=== PATIENT | male | born 1940 | race Caucasian/White ===

== ENCOUNTER → 2016-08-31 | Day surgery (SDC) | payer MEDICARE ==
[~2016-08-31] MED LIST: Acetaminophen TAB* 325 MG PO PRN; Buffered Lidocaine 1% SYR 3ML* 3 ML/SYR SYRINGE INTRADERM ONE; Buffered Lidocaine 1% SYR 3ML* 3 ML/SYR SYRINGE ONE; Cyclopentolate 1% OPTH.SOL* 2 ML BTL ONE; Flurbiprofen 0.03% OPTH.SOL* 2.5 ML BTL ONE; Lidocaine 1% MPF* 2 ML VIAL ONE; Lidocaine 2% EPI 1:200000 MPF* 20 ML VIAL ONE; Midazolam* 1 MG/ML 2 ML VIAL (2 MG) ONE; Neomycin/Polymy/Dex OPTH.SUSP* MAXITROL 0.1% 5 ML ONE; Phenylephrine 2.5% OPTH.SOL* 2 ML BTL ONE; Povidone Iodine 5% OPTH* 30 ML BTL ONE; Proparacaine 0.5% OPHTH.SOL* 15 ML BTL ONE; acetaZOLAMIDE TAB* 250 MG ONE
[2016-08-31 14:54] VITALS: BP 138/67
--- NOTE | 2016-08-31 21:54 | OP ---
DATE OF OPERATION: 08/31/16 [facility] DATE OF : 44 SURGEON: Cirilo Gaston M.D. PREOPERATIVE DIAGNOSIS: Cataract, right eye. POSTOPERATIVE DIAGNOSIS: Cataract, right eye. OPERATIVE PROCEDURE: Phacoemulsification, right eye with IOL. DESCRIPTION OF PROCEDURE: The patient was brought to the operating room after being given 1/2% Alcaine with epinephrine drops in the preoperative area. The eye was prepped and draped in the usual sterile fashion. Sterile drape and eyelid speculum were placed. Again, topical 1/2% Alcaine with epinephrine was given. A paracentesis incision was made at the 9 o'clock position with the No.75 blade. Clear cornea incision 2.2 x 2.2-mm was created at the 12 o'clock position starting at the anterior limbus using the 2.2-mm keratome. The anterior chamber was irrigated with 0.4 mL of 1% non-preservative intracameral lidocaine and filled with DisCoVisc. A capsulorrhexis was completed using the cystotome and the Utrata forceps. Hydrodissection was performed with balanced salt solution. The lens nucleus was removed with the Phacoemulsification handpiece without incident. Cortex was removed with the irrigation-aspiration handpiece. The capsular bag was re-inflated using DisCoVisc and an [id number] 15.5 implant was inserted with the shooter. The irrigation-aspiration handpiece was used to remove all residual DisCoVisc. The eye was refilled with balanced salt solution and the wound checked and found to be watertight. Topical Maxitrol drops were given. [id number]/[facility] #: [id number] [facility]
== END | disposition home or self-care (01) ==
LOC: OREAST 10:05
PROVIDERS: ATTEND Specialist
DX: H25.813 Combined forms of age-related cataract, bilateral (principal); H43.813 Vitreous degeneration, bilateral; I25.10 Atherosclerotic heart disease of native coronary artery without angina pectoris; I10 Essential (primary) hypertension; I71.4 Abdominal aortic aneurysm, without rupture; Z95.1 Presence of aortocoronary bypass graft; K21.9 Gastro-esophageal reflux disease without esophagitis; F32.9 Major depressive disorder, single episode, unspecified; E78.00 Pure hypercholesterolemia, unspecified
CPT/HCPCS: A9270-GY; J2250; V2632

== ENCOUNTER → 2016-09-07 | Day surgery (SDC) | payer MEDICARE ==
[2016-09-07 11:57] VITALS: BP 122/56
--- NOTE | 2016-09-07 13:22 | OP ---
DATE OF OPERATION: 09/07/16 - [facility] DATE OF : 44 SURGEON: Cirilo Gaston M.D. PREOPERATIVE DIAGNOSIS: Cataract, left eye. POSTOPERATIVE DIAGNOSIS: Cataract, left eye. OPERATIVE PROCEDURE: Phacoemulsification, left eye, with IOL. DESCRIPTION OF PROCEDURE: The patient was brought to the operating room after being given 1/2% Alcaine with epinephrine drops in the preoperative area. The eye was prepped and draped in the usual sterile fashion. Sterile drape and eyelid speculum were placed. Again, topical 1/2% Alcaine with epinephrine was given. A paracentesis incision was made at the 3 o'clock position with the No.75 blade. Clear cornea incision 2.2 x 2.2-mm was created at the 6 o'clock position starting at the anterior limbus using the 2.2-mm keratome. The anterior chamber was irrigated with 0.4 mL of 1% non-preservative intracameral lidocaine and filled with DisCoVisc. A capsulorrhexis was completed using the cystotome and the Utrata forceps. Hydrodissection was performed with balanced salt solution. The lens nucleus was removed with the Phacoemulsification handpiece without incident. Cortex was removed with the irrigation-aspiration handpiece. The capsular bag was re-inflated using DisCoVisc and an [id number] 15 implant was inserted with the shooter. The irrigation-aspiration handpiece was used to remove all residual DisCoVisc. The eye was refilled with balanced salt solution and the wound checked and found to be watertight. Topical Maxitrol drops were given. [id number]/[facility] #: [id number] MTDD
== END | disposition home or self-care (01) ==
LOC: OREAST 08:15
PROVIDERS: ATTEND Specialist
DX: H25.812 Combined forms of age-related cataract, left eye (principal); H43.813 Vitreous degeneration, bilateral; I10 Essential (primary) hypertension
CPT/HCPCS: A9270-GY; J2250; V2632

== ENCOUNTER → 2019-04-10 | Day surgery (SDC) | payer MEDICARE ==
[~2019-04-10] MED LIST changes: -Acetaminophen TAB* 325 MG PO PRN; -Buffered Lidocaine 1% SYR 3ML* 3 ML/SYR SYRINGE INTRADERM ONE; -Buffered Lidocaine 1% SYR 3ML* 3 ML/SYR SYRINGE ONE; +Buffered Lidocaine 1% SYRIN* 1 ML/SYRINGE INTRADERM ONE; +Chlorhexidine MW 0.12% 473ML* STOCK BOTTLE * USE UNIT DOSE ONE; -Cyclopentolate 1% OPTH.SOL* 2 ML BTL ONE; +Dexamethasone IV* 4 MG/ML 1 ML (4 MG) ONE; -Flurbiprofen 0.03% OPTH.SOL* 2.5 ML BTL ONE; +Gelfoam Sponge SIZE 100* SPONGE ONE; +Lactated Ringers 1000 ML Bag* 1,000 ML IV SCH; -Lidocaine 1% MPF* 2 ML VIAL ONE; +Lidocaine 1% w EPI 1:100,000* MDV 20 ML VIAL ONE; -Lidocaine 2% EPI 1:200000 MPF* 20 ML VIAL ONE; +Methylene Blue 0.5 %* 50 MG/10 ML AMP IV ONE; -Neomycin/Polymy/Dex OPTH.SUSP* MAXITROL 0.1% 5 ML ONE; +Ondansetron INJ* 2 MG/ML VIAL ONE; -Phenylephrine 2.5% OPTH.SOL* 2 ML BTL ONE; -Povidone Iodine 5% OPTH* 30 ML BTL ONE; -Proparacaine 0.5% OPHTH.SOL* 15 ML BTL ONE; +Propofol* 10 MG/ML 20 ML BTL ONE; +Rocuronium* 10 MG/ML VIAL ONE; +Sugammadex * 200 MG/2 ML VIAL IV PUSH ONE; -acetaZOLAMIDE TAB* 250 MG ONE; +ceFAZolin 2 GM in NS PREMIX(*) 2 GM/100 ML BAG IVPB ONE; +fentaNYL* 50 MCG/ML 2 ML VIAL (100 MCG VIAL) ONE
[2019-04-10 11:22] VITALS: BP 154/76
--- NOTE | 2019-04-10 14:10 | OP ---
DATE OF OPERATION: 04/10/19 - [facility] DATE OF : 44 SURGEON: Cirilo Le MD ANESTHESIA: General endotracheal anesthesia. 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 OPERATIVE PROCEDURE: Tooth extraction #6 which is the right upper canine and CO2 laser ablation/excision of verrucous carcinoma of the gingiva and hard palate under general endotracheal anesthesia. COMPLICATIONS: None. DISPOSITION: Good. DESCRIPTION OF PROCEDURE: The patient was taken to the operating room, placed in a supine position on the operating table. General anesthesia was induced and he was orotracheally intubated. He was draped with wet towels and wet eye pads for the CO2 laser and the surgery was performed. A bite-block was placed on the left side to open his mouth. He had a lot of diffuse leukoplakia along his alveolus and gingiva along the right upper jaw, and biopsy between his second incisor and canine, wrapping around the canine to the first premolar, was biopsy proven to be verrucous cell carcinoma. I injected this whole area with 1% lidocaine mixed with 0.5% Marcaine and epinephrine and used the CO2 laser to ablate all of this area along the both medial and lateral alveolus along the teeth to remove all of the leukoplakia where the cancer was. I extracted the tooth #6 and used the laser to cut out the area that was cancer. I elevated a flap on the lateral aspect of the maxilla with the gingivobuccal mucosa, and after putting some Gelfoam into the tooth socket, sutured the mucosa over the hole with circumdental 4-0 chromic. Chlorhexidine was used to rinse the wound. The patient tolerated the procedure well, no complications, extubated uneventfully, and transferred to the recovery room in stable condition. [id number]/[facility] #: [id number] [facility]
== END | disposition home or self-care (01) ==
LOC: OR 06:41
PROVIDERS: ATTEND Otolaryngology
DX: C03.0 Malignant neoplasm of upper gum (principal); C05.0 Malignant neoplasm of hard palate; K05.222 Aggressive periodontitis, generalized, moderate; G47.33 Obstructive sleep apnea (adult) (pediatric); I10 Essential (primary) hypertension; I25.10 Atherosclerotic heart disease of native coronary artery without angina pectoris; Z95.1 Presence of aortocoronary bypass graft; E78.00 Pure hypercholesterolemia, unspecified; N40.0 Benign prostatic hyperplasia without lower urinary tract symptoms
CPT/HCPCS: 88300; J0690; J1100; J2250; J2405; J2704; J3010

== ENCOUNTER 2019-06-06 10:50 | Inpatient (IN) | payer MEDICARE ==
--- NOTE | 2019-05-28 09:35 | HP ---
HISTORY AND PHYSICAL: DATE OF ADMISSION/SURGERY: 06/06/19 DATE OF OFFICE VISIT: 05/27/19 SURGEON: Ana Paula Ward MD.* (DICTATED BY NICOLASA RODRIGUEZ) PROCEDURE: Right total knee arthroplasty. CHIEF COMPLAINT: Right knee pain. HISTORY OF PRESENT ILLNESS: Mr. Lepe is a 78-year-old gentleman with complaints of right knee pain. He has failed conservative treatment and elected to proceed with a right total knee arthroplasty. PAST MEDICAL HISTORY: Coronary artery disease with a history of CABG, hypertension, high cholesterol, GERD, anxiety, depression, history of prostate cancer, and history of abdominal aortic aneurysm. PAST SURGICAL HISTORY: CABG, removal of periosteal chondroma, prostatectomy, stent placement in the abdominal aorta, and a cardiac stent placement. CURRENT MEDICATIONS: 1. Abilify 2 mg daily. 2. Rosuvastatin calcium 40 mg a day. 3. Nitroglycerin 0.4 mg sublingual as needed. 4. Cartia 120 mg daily. 5. Aspirin 81 mg a day. 6. Prilosec 20 mg a day. 7. Fish oil. 8. Escitalopram 20 mg a day. 9. Tamsulosin 0.4 mg daily. 10. Stool softener as needed. ALLERGIES: No known drug allergies. FAMILY HISTORY: Cancer and coronary artery disease. SOCIAL HISTORY: He is a 78-year-old gentleman, lives with his . He does not smoke or use drugs. REVIEW OF SYSTEMS: A complete 14-point review of systems was reviewed with the patient and was positive for GERD. He denies a history of DVT, PE, hepatitis, HIV, or anesthesia problems. PHYSICAL EXAMINATION GENERAL: He is well developed, well nourished, in no acute distress. VITAL SIGNS: He stands 67 inches tall, weighs 193 pounds, his blood pressure is 130/62, his heart rate is 82. HEENT: Normocephalic, atraumatic. NECK: Supple. No palpable lymph nodes. CARDIO: Regular rate and rhythm. There is a palpable murmur. ABDOMEN: Soft, nontender, nondistended. NEUROLOGIC: He is alert and oriented x3. MUSCULOSKELETAL: Right lower extremity, skin is intact. There are no open wounds or abrasions. There is a moderate effusion of the right knee joint, some tenderness over the medial and lateral joint line. He walks with an antalgic type gait. There is a 12-degree valgus deformity. Range of motion is 10 to 100 degrees of flexion with patellofemoral crepitus. He has a 2+ dorsalis pedis pulse. He is able to dorsiflex and plantarflex and has intact sensation. ASSESSMENT AND PLAN: Mr. Lepe is a 78-year-old gentleman with end-stage osteoarthritis of the right knee. He has failed conservative treatment and elected to proceed with a right total knee arthroplasty. The surgery is scheduled for 06/06/[address] Ward discussed the risks and benefits of this surgery on today's visit and all of his questions were answered. He will follow up with Dr. Ward 2 weeks after the surgery. NICOLASA RODRIGUEZ [id number]/[facility] #: [id number] MTDStephan
[~2019-06-06 10:50] MED LIST changes: -Chlorhexidine MW 0.12% 473ML* STOCK BOTTLE * USE UNIT DOSE ONE; -Dexamethasone IV* 4 MG/ML 1 ML (4 MG) ONE; -Gelfoam Sponge SIZE 100* SPONGE ONE; -Lidocaine 1% w EPI 1:100,000* MDV 20 ML VIAL ONE; -Methylene Blue 0.5 %* 50 MG/10 ML AMP IV ONE; -Midazolam* 1 MG/ML 2 ML VIAL (2 MG) ONE; -Ondansetron INJ* 2 MG/ML VIAL ONE; -Propofol* 10 MG/ML 20 ML BTL ONE; -Rocuronium* 10 MG/ML VIAL ONE; -Sugammadex * 200 MG/2 ML VIAL IV PUSH ONE; +Tranexamic Acid 1,000 MG in NS 0.9% 50 ML* (outpatient use) IV SCH; -ceFAZolin 2 GM in NS PREMIX(*) 2 GM/100 ML BAG IVPB ONE; -fentaNYL* 50 MCG/ML 2 ML VIAL (100 MCG VIAL) ONE
--- OUTSIDE RECORDS SUMMARY | 2019-06-06 10:54 | XMS REPORT | Continuity of Care Document ---
:1940 External Reference #:[id number] Author Name Cirilo Le M.D. Address [address] [place] [address] Care Team Providers Name Role Phone Chris Hatfiled DDS Care Team Information House Worker General [phone] [place] Catherine M.D. - Endocrinology, Care Team Information House Worker General [phone] Diabetes & Metabolism Khurram Haddad DR. - Care Team Information House Worker General [phone] Cardiovascular Disease Problems Active Problems Provider Date Essential hypertension Cirilo Le M.D. Onset: 01/01/2019 Malignant tumor of hard palate Cirilo Le M.D. Onset: 03/11/2019 Social History Type Date Description Comments Sex Unknown Tobacco Use Start: Unknown Never Smoked Cigarettes Tobacco Use Start: Unknown Never Smoked Cigars Tobacco Use Start: Unknown Never Smoked A Pipe Smokeless Tobacco Never Used Smokeless Tobacco ETOH Use Denies alcohol use Tobacco Use Start: Unknown Patient has never smoked Smoking Status Reviewed: 05/19/19 Patient has never smoked Allergies, Adverse Reactions, Alerts Description No Known Drug Allergies Medications Active Medications SIG Qnty Indications Ordering Date Provider Triamcinolone apply to inflamed 15gm K05.222 Cirilo Youssef 02/25/2019 Acetonide Dental gums two times a Ina Le day for 2 weeks M.DMichel 0.1% Paste Clotrimazole 1 by mouth 5 times 70units Cirilo Youssef 01/08/2019 10mg a day for 14 days Jerson Le M.D. Cartia MORAIMA Haddad, 120mg Caps BRITTNEY Paulson DR. 24HR Omeprazole Bere SABA, 20mg Walker Capsules Aripiprazole Unknown 2mg Tablets Chlorhexidine rinse and spit 10 354ml Cirilo Youssef Gluconate milliliters three Rey 0.12% times per day MChun Solution postoperative. Tamsulosin HCL Unknown 0.4mg Capsules Escitalopram Oxalate Unknown 20mg Tablets Rosuvastatin Calcium Foster N.P., Shilpa 40mg Tablets History Medications Oxycodone-Acetaminophen take 1-2 12tabs Cirilo Youssef 04/10/2019 - 5-325mg Tablets every 4-6 Luis Le 04/17/2019 hours as needed for pain. Mycelex Trouches 1 per mouth 70units Cirilo Youssef 01/08/2019 - 10mg Trouches 5 times per Luis Le 01/08/2019 day Immunizations Description No Information Available Vital Signs Date Vital Result Comment 05/20/2019 1:39pm Weight 194.12 lb Weight 88.055 kg Height 68 inches 5'8" Height in cm's 172.7 cm BMI (Body Mass Index) 29.5 kg/m2 03/11/2019 3:11pm BP Systolic 145 mmHg BP Diastolic 67 mmHg Heart Rate 75 /min Respiratory Rate 18 /min Weight 181.00 lb Weight 82.102 kg Height 68 inches 5'8" Height in cm's 172.7 cm BMI (Body Mass Index) 27.5 kg/m2 Results Test Date Facility Test Result H/L Range Note Laboratory test 04/10/2019 [facility] SEE RESULT 1 finding c/o [facility] [place], [place] [id number] [phone] Laboratory test 02/25/2019 [facility] SEE RESULT 2, 3 finding c/o [facility] [place] [address] [phone] Laboratory test 01/01/2019 [facility] SEE RESULT 4 finding c/o [facility] [place] [address] [phone] 1 SEE RESULT BELOW Name: LEVI LEPE : [address]: Cirilo Le MD Acct: [id number] Unit: [id number] AGE: 78 Location: OR Re04/10/19 SEX: M Status: REG SDC SPEC: [id number] VANNESSA: 04/10/19- [facility] DR: Cirilo Le MD REQ: [id number] RECD: 04/10/19 STATUS: SOUT _ ORDERED: LEVEL 1 FINAL DIAGNOSIS Mouth teeth, right upper canine, extraction: Carious teeth (gross diagnosis) PRE-OPERATIVE DIAGNOSIS Aggressive periodentitis, generalized, moderate GROSS DESCRIPTION The specimen is received fresh labeled, Right Upper Canine, and consists of a 2.5 by up to 0.8 x 0.8 cm pritchard-white to red irregular to tapered hard fragment with scant adherent pritchard-red soft tissue. The specimen is consistent with a tooth. Per established hospital medical staff protocol, no tissue is submitted. Gross only. Signed by and Reported on: Jeff Suarez MD 1523 END OF REPORT DEPARTMENT OF PATHOLOGY, [address] [place] [address] Jeff Suarez M.D. 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 Comment: The patient's prior biopsies S1 9???5 [id number] were reviewed. CLINICAL HISTORY Compare to previous biopsy GROSS DESCRIPTION The specimen is received in formalin labeled, Mouth, and consists of a 0.5 up to 0.4 x 0.2 cm pritchard-white irregular mucosal tissue fragment which is submitted entirely in one cassette. Signed by and Reported on: Jeff Suarez MD 1133 END OF REPORT DEPARTMENT OF PATHOLOGY, [address] [place] [address] Jeff Suarez M.D. Director [facility] # [id number] 4 SEE RESULT BELOW Name: LEVI LEPE : [address]: Cirilo Le MD Acct: [id number] Unit: [id number] AGE: 78 Location: [facility] Re01/01/19 SEX: M Status: REG REF SPEC: [id number] VANNESSA: 01/01/19-[address] [facility] [address]: Cirilo Le MD REQ: [id number] RECD: 01/01/19 STATUS: SOUT _ ORDERED: LEVEL 4/2, IMMUNO-FIRST COMMENTS: [id number] FINAL DIAGNOSIS 1. Oral mucosa, palatal surface behind right upper canine, biopsy: -- Benign squamous mucosa with chronic and focal acute inflammation and reactive epithelial change; see comment. 2. Gingival surface between first and second molar, biopsy: -- Inflamed, hyper parakeratotic squamous mucosa with pseudoepitheliomatous hyperplasia. -- No evidence of dysplasia or malignancy identified. COMMENT: A p16 immunohistochemical stain, with appropriately reacting controls, was performed on sections cut from specimen one and is negative for HPV-related cytopathic effect. Dr. Suarez reviewed this case in intradepartmental consultation and agrees with the diagnosis. CLINICAL HISTORY No history given GROSS DESCRIPTION 1. The specimen is received in formalin labeled, Palatal Surface behind Right Upper Canine, and consists of a 0.5 x 0.3 x 0.2 cm pritchard-white irregular mucosal tissue fragment which is inked, bisected and submitted entirely in one cassette. 2. The specimen is received in formalin labeled, Gingival Surface between First and Second CONTINUED ON NEXT PAGE DEPARTMENT OF PATHOLOGY, [address] [place] [address] Jeff Suarez M.D. Director [facility] # [id number] RUN DATE: 01/04/19 [facility] LAB LIVE PAGE 2 Patient: LEVI LEPE [id number] (Continued) GROSS DESCRIPTION (Continued) Molar, and consists of a 0.5 by up to 0.3 x 0.1 cm pritchard-white irregular mucosal tissue fragment which is inked, bisected and submitted entirely in one cassette. Signed by and Reported on: Bouchra Dalton MD 01/04/19 1109 END OF REPORT DEPARTMENT OF PATHOLOGY, [address] [place] [address] Jeff Suarez M.D. Director [facility] # [id number] Procedures Date Code Description Status 04/10/2019 85659 Cautery, Lesion Of Oral Cavity Completed 02/25/2019 04081 Biopsy Floor Of Mouth Completed 01/01/2019 12518 Biopsy, Palate/Uvula Completed Medical Devices Description No Information Available Encounters Type Date Location Provider Dx Diagnosis Office Visit 05/20/2019 [place] Cirilo Youssef C05.0 Malignant neoplasm 1:45p 08/14/07 Luis Le of hard palate K05.222 Aggressive periodontitis, generalized, moderate Office Visit 03/11/2019 [place] Cirilo Youssef C05.0 Malignant 3:00p 08/14/07 Luis Le neoplasm of hard palate K05.222 Aggressive periodontitis, generalized, moderate Office 02/25/2019 [place] Cirilo Youssef K05.222 Aggressive Visit 3:15p 08/14/07 Luis Le periodontitis, generalized, moderate Office 01/01/2019 [place] Cirilo Youssef C05.0 Malignant neoplasm Visit 10:15a 08/14/07 Luis Le of hard palate Assessments Date Code Description Provider 05/20/2019 C05.0 Malignant neoplasm of hard palate Cirilo Le M.D. 05/20/2019 K05.222 Aggressive periodontitis, generalized, Cirilo Le M.D. moderate 04/17/2019 C05.0 Malignant neoplasm of hard palate Cirilo Le M.D. 04/10/2019 C05.0 Malignant neoplasm of hard palate Cirilo Le M.D. 03/11/2019 C05.0 Malignant neoplasm of hard palate Cirilo Le M.D. 03/11/2019 K05.222 Aggressive periodontitis, generalized, Cirilo Le M.D. moderate 02/25/2019 K05.222 Aggressive periodontitis, generalized, Cirilo Le M.D. moderate 01/01/2019 C05.0 Malignant neoplasm of hard palate Cirilo Le M.D. Plan of Treatment No Information Available Functional Status Description No Information Available Mental Status Description No Information Available Referrals Description No Information Available
--- OUTSIDE RECORDS SUMMARY | 2019-06-06 10:54 | XMS REPORT | Continuity of Care Document ---
:1940 External Reference #:[id number] Author Name Ana Paula Ward M.D. 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 Onset: 02/18/2014 Chest pain Khurram Haddad M.D. Onset: 02/18/2014 Benign essential hypertension Khurram Haddad M.D. Onset: 02/18/2014 Mixed hyperlipidemia Khurram Haddad M.D. Onset: 02/18/2014 Heart murmur Khurram Haddad M.D. Onset: 02/18/2014 Aortocoronary Bypass Postsurgical Khurram Haddad M.D. Onset: 2013 Status Essential hypertension [place] [facility] Schedule Onset: 05/11/2015 Essential hypertension Khurram Haddad M.D. Onset: 06/12/2015 History of coronary artery bypass Khurram Haddad M.D. Onset: 2014 grafting Localized, secondary osteoarthritis Ana Paula Ward M.D. 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 Onset: 05/06/2019 Localized, primary osteoarthritis Ana aPula Ward M.D. Onset: 05/06/2019 Social History Type Date Description Comments Sex Unknown Tobacco Use Start: Unknown Never Smoked Cigarettes Smoking Status Reviewed: 05/06/19 Never Smoked Cigarettes ETOH Use Denies alcohol use ETOH Use Recovering alcoholic Tobacco Use Start: Unknown Patient has never smoked Recreational Drug Use Denies Drug Use Exercise Type/Frequency Exercises regularly walking and does Hungarian Chi 4x per week Mon- Allergies, Adverse Reactions, Alerts Description No Known Drug Allergies Medications Active Medications SIG Qnty Indications Ordering Date Provider Abilify 1 by mouth every Unknown 03/20/2019 2mg Tablets day Rosuvastatin Calcium Take 1 Tablet By 90tabs Shilpa Xie, 01/30/2018 40mg Mouth Once Daily N.P. Tablets Nitroglycerin dissolve one 14tabs Qutaybbharath SMichel 02/27/2017 0.4mg tablet under the Luis Haddad Tablets Sub tongue every five minutes up to three times as needed for chest pain Cartia XT take one capsule 90caps Shilpa Xie, 12/02/2015 120mg Caps ER daily N.P. 24HR Aspirin Ec 1 by mouth every Unknown 81mg Tablets day DR Multi Vitamin Mens 1 by mouth every Unknown day Tablets Prilosec 1 by mouth every 90caps Unknown 20mg Capsules DR day Fish Oil Burp-Less 1 by mouth twice Unknown 1200mg a day Capsules Escitalopram Oxalate 1 by mouth qd 90tabs Unknown 20mg Tablets Tamsulosin HCL 1 by mouth every Unknown 0.4mg day Capsules Stool Softener 1 by mouth daily Unknown 100mg Capsules Medications Administered in Office Medication SIG Qnty Indications Ordering Provider Date Depomedrol 40MG Ana Paula Ward M.D. 12/22/2017 Injection Immunizations Description No Information Available Vital Signs Date Vital Result Comment 05/06/2019 9:38am Height 67 inches 5'7" Weight 187.00 lb Heart Rate 83 /min BP Systolic 142 mmHg BP Diastolic 80 mmHg Respiratory Rate 16 /min Body Temperature 97.1 F Pain Level 1 BMI (Body Mass Index) 29.3 kg/m2 03/21/2019 11:23am Height 67 inches 5'7" Weight 183.12 lb without shoes Heart Rate 86 /min radial, regular BP Systolic Sitting 130 mmHg LA, reg cuff BP Diastolic Sitting 66 mmHg LA, reg cuff BP Systolic Standing 130 mmHg LA, reg cuff BP Diastolic Standing 66 mmHg LA, reg cuff BMI (Body Mass Index) 28.7 kg/m2 Ejection Fraction 55%-60% echo 05/11/15 Results Test Date Facility Test Result H/L Range Note Laboratory test 04/10/2019 [facility] Surgical SEE RESULT [address] [place] [address] [phone] Laboratory test 02/25/2019 [facility] Surgical SEE RESULT 2 , [address] [place] [address] [phone] 1 SEE RESULT BELOW Name: STEPHMEGANZEINABLEVI : [address]: Cirilo Le MD Acct: [id number] Unit: [id number] AGE: 78 Location: OR Re04/10/19 SEX: M Status: REG [facility] SPEC: [id number] VANNESSA: 04/10/19- SUBM DR: Cirilo Le MD REQ: [id number] RECD: 04/10/19 STATUS: SOUT _ ORDERED: LEVEL [...] 1523 END OF REPORT DEPARTMENT OF PATHOLOGY, [address] [place] [address] Jeff Suarez M.D. Director [facility] # [id number] 2 [id number] 3 SEE RESULT BELOW Name: LEVI LEPE : [address]: Cirilo Le MD Acct: [id number] Unit: [id number] AGE: 78 Location: [facility] Re02/25/19 SEX: M Status: REG REF SPEC: [id number] VANNESSA: 02/25/19-[address] [facility] [address]: Cirilo Le MD REQ: [id number] RECD: 02/26/19-121 STATUS: SOUT _ ORDERED: LEVEL 4 COMMENTS: [id number] FINAL DIAGNOSIS Mouth, oral mucosa, biopsy: -- [...] 1133 END OF REPORT DEPARTMENT OF PATHOLOGY, [address] [place] [address] Jeff Suarez M.D. Director [facility] # [id number] Procedures Date Code Description Status 04/02/2019 77345 ECHO Transthoracic, Real-Time 2D With Doppler And Color Completed Flow 04/02/2019 51246 ECHO Transthoracic, Real-Time 2D With Doppler And Color Completed Flow 03/21/2019 23425 EKG Tracing & Interpretation Completed Medical Devices Description No Information Available Encounters Type Date Location Provider Dx Diagnosis Office Visit 03/21/2019 [facility] Shilpa Xie, I10 Essential ( primary) 11:30a N.P. 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 05/06/2019 M25.461 Effusion, right knee Ana Paula Ward M.D. 05/06/2019 M17.11 Unilateral primary osteoarthritis, Ana Paula Ward M.D. right knee 05/06/2019 M21.061 Valgus deformity, not elsewhere Ana Paula Ward M.D. classified, right knee 04/02/2019 I35.1 Nonrheumatic aortic (valve) Khurram Haddad M.D. insufficiency 04/02/2019 I35.1 Nonrheumatic aortic (valve) [facility] Schedule insufficiency 04/02/2019 R94.31 Abnormal electrocardiogram [ECG] [EKG] [facility] 04/02/2019 I10 Essential (primary) hypertension [facility] Schedule 04/02/2019 Z95.1 Presence of aortocoronary bypass graft [facility] Schedule 03/21/2019 R94.31 Abnormal electrocardiogram [ECG] [EKG] Timoteo Mathews M.D. 03/21/2019 I10 Essential (primary) hypertension Shilpa Xie, N.P. 03/21/2019 Z95.1 Presence of aortocoronary bypass graft Shilpa Xie N.P. 03/21/2019 I35.1 Nonrheumatic aortic (valve) Shilpa Xie N.P. insufficiency 03/21/2019 I25.10 Atherosclerotic heart disease of Shilpa Xie, N.P. [place] coronary artery without angina pectoris 03/21/2019 R94.31 Abnormal electrocardiogram [ECG] [EKG] Shilpa Xie N.P. 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 unspecified 03/21/2019 Z01.810 Encounter for preprocedural [facility] cardiovascular examination Plan of Treatment Future Appointment(s):05/27/2019 9:00 am - Ana Paula Ward M.D. at [facility]06/14/2019 4:00 pm - Khurram Haddad M.D. at [facility]05/06/2019 - Ana Paula Ward M.D.M25.561 Pain in right kneeFollow up: Follow up: 7-10 days before bdmarstI22.461 Effusion, right kneeM17.11 Unilateral primary osteoarthritis, right kneeM21.061 Valgus deformity, not elsewhere classified, right knee Functional Status Description No Information Available Mental Status Description No Information Available Referrals Description No Information Available
--- OUTSIDE RECORDS SUMMARY | 2019-06-06 10:54 | XMS REPORT | Continuity of Care Document ---
:1940 External Reference #:[id number] Author Name Ana Paula Ward M.D. 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 Onset: 05/06/2019 Acquired genu vondaguandi Ana Paula Ward M.D. Onset: 05/06/2019 Social History Type Date Description Comments Sex Unknown Tobacco Use Start: Unknown Never Smoked Cigarettes Smoking Status Reviewed: 05/27/19 Never Smoked Cigarettes ETOH Use Denies alcohol use ETOH Use Recovering alcoholic Tobacco Use Start: Unknown Patient has never smoked Recreational Drug Use Denies Drug Use Exercise Type/Frequency Exercises regularly walking and does Dutch Chi 4x per week Mon- Allergies, Adverse Reactions, Alerts Description No Known Drug Allergies Medications Active Medications SIG Qnty Indications Ordering Date Provider Abilify 1 by mouth every Unknown 03/20/2019 2mg Tablets day Rosuvastatin Calcium Take 1 Tablet By 90tabs Shilpa Xie, 01/30/2018 40mg Mouth Once Daily N.P. Tablets Nitroglycerin dissolve one 14tabs Qutaybbharath S. 02/27/2017 0.4mg tablet under the Luis Haddad [...] Available Vital Signs Date Vital Result Comment 05/27/2019 9:10am Height 67 inches 5'7" Weight 193.00 lb Heart Rate 82 /min BP Systolic 130 mmHg BP Diastolic 62 mmHg Body Temperature 96.1 F Pain Level 0 BMI (Body Mass Index) 30.2 kg/m2 05/06/2019 9:38am Height 67 inches 5'7" Weight 187.00 lb Heart Rate 83 /min BP Systolic 142 mmHg BP Diastolic 80 mmHg Respiratory Rate 16 /min Body Temperature 97.1 F Pain Level 1 BMI (Body Mass Index) 29.3 kg/m2 Results Test Date Facility Test Result H/L Range Note Laboratory test 04/10/2019 [facility] Surgical SEE RESULT [address] [place] [address] [phone] Laboratory test 02/25/2019 [facility] Surgical SEE RESULT 2 , [address] [place] [address] [phone] 1 SEE RESULT BELOW Name: LEVI LEPE : [address]: Cirilo Le MD Acct: [id number] Unit: [id number] AGE: 78 Location: OR Re04/10/19 SEX: M Status: REG [facility] SPEC: [id number] VANNESSA: 04/10/19- SUBM DR: Cirilo Le MD REQ: [id number] RECD: 04/10/19 STATUS: SOUT _ ORDERED: LEVEL [...] 1523 END OF REPORT DEPARTMENT OF PATHOLOGY, [address] [place] [address] Jeff Suarez M.D. Director [facility] # [id number] 2 [id number] 3 SEE RESULT BELOW Name: LEVI LEPE : [address]: Cirilo Le MD Acct: [id number] Unit: [id number] AGE: 78 Location: [facility] Re02/25/19 SEX: M Status: REG REF SPEC: [id number] VANNESSA: 02/25/19-[address] [facility] [address]: Cirilo Le MD REQ: [id number] RECD: 02/26/191211 STATUS: SOUT _ ORDERED: LEVEL 4 COMMENTS: [id number] FINAL DIAGNOSIS Mouth, oral mucosa, biopsy: -- [...] 1133 END OF REPORT DEPARTMENT OF PATHOLOGY, [address] [place] [address] Jeff Suarez M.D. Director [facility] # [id number] Procedures Date Code Description Status 04/02/2019 18533 ECHO Transthoracic, Real-Time 2D With Doppler And Color Completed Flow 04/02/2019 58386 ECHO Transthoracic, Real-Time 2D With Doppler And Color Completed Flow 03/21/2019 11474 EKG Tracing & Interpretation Completed Medical Devices Description No Information Available Encounters Type Date Location Provider Dx Diagnosis Office Visit 05/06/2019 [facility] Ana Paula Ward, M25.561 Pain in right 9:30a at [place] M.D. 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 05/27/2019 M25.461 Effusion, right knee Ana Paula Ward M.D. 05/27/2019 M17.31 Unilateral post-traumatic Ana Paula Ward M.D. osteoarthritis, right knee 05/27/2019 M21.061 Valgus deformity, not elsewhere Ana Paula Ward M.D. classified, right knee 05/06/2019 M25.561 Pain in right knee Ana Paula Ward M.D. 05/06/2019 M25.461 Effusion, right knee Ana Paula Ward M.D. 05/06/2019 M17.31 Unilateral post-traumatic Ana Paula Ward M.D. osteoarthritis, right knee 05/06/2019 M21.061 Valgus deformity, not elsewhere Ana Paula Ward M.D. classified, right knee 04/02/2019 I35.1 Nonrheumatic aortic (valve) Khurram Haddad M.D. insufficiency 04/02/2019 I35.1 Nonrheumatic aortic (valve) [place] Schedule insufficiency 04/02/2019 R94.31 Abnormal electrocardiogram [ECG] [EKG] [facility] Schedule 04/02/2019 I10 Essential (primary) hypertension [facility] Schedule 04/02/2019 Z95.1 Presence of aortocoronary bypass graft [facility] Schedule 03/21/2019 R94.31 Abnormal electrocardiogram [ECG] [EKG] Timoteo Mathews M.D. 03/21/2019 I10 Essential (primary) hypertension Shilpa Xie, N.P. 03/21/2019 Z95.1 Presence of aortocoronary bypass graft Shilpa Madden. Rojas, N.P. 03/21/2019 I35.1 Nonrheumatic aortic (valve) Shilpa Xie, N.P. insufficiency 03/21/2019 I25.10 Atherosclerotic heart disease of Shilpa Xie, N.P. [place] coronary artery without angina pectoris 03/21/2019 R94.31 Abnormal electrocardiogram [ECG] [EKG] Shilpa Madden. Rojas, N.P. 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 unspecified 03/21/2019 Z01.810 Encounter for preprocedural Shilpa Xie, N.P. cardiovascular examination Plan of Treatment Future Appointment(s):06/17/2019 2:15 pm - Ana Paula Ward M.D. at [facility]06/06/2019 11:30 am - Duncan Luque PA-C at [facility]06/06/2019 11:30 am - NICOLASA Claire at [facility] at [id number]/06/2019 11:30 am - Ana Paula Ward M.D. at [facility]06/14/2019 4:00 pm - Khurram Haddad M.D. at [facility]05/27/2019 - Ana Paula Ward M.D.M25.561 Pain in right kneeFollow up:Follow up: 2 weeks after mhjuwvyW62.461 Effusion, right kneeM17.31 Unilateral post-traumatic osteoarthritis, right kneeM21.061 Valgus deformity, not elsewhere classified, right knee Functional Status Description No Information Available Mental Status Description No Information Available Referrals Description No Information Available
[2019-06-06] MEDS ORDERED: Propofol* 10 MG/ML 20 ML BTL ONE ×2 (11:01→12:50)
[2019-06-06] MEDS ORDERED: ROPIVACAINE 5 MG/ML 30 ML BTL (0.5%) ONE ×2 (11:02→12:04)
[2019-06-06] MEDS ORDERED: Lidocaine 2% PF * 5 ML VIAL ONE ×3 (11:02→12:50)
[2019-06-06] MEDS ORDERED: Dexmedetomidine* 200 MCG/2 ML 2 ML VIAL ONE (11:03)
[2019-06-06] MEDS ORDERED: Midazolam* 1 MG/ML 2 ML VIAL (2 MG) ONE (11:05)
[2019-06-06] MEDS ORDERED: ceFAZolin 2 GM PREMIX in ORs 2 GM/50 ML BAG ONE (11:15)
[2019-06-06 12:29] LABS: INR 1.03 (0.82-1.09)
[2019-06-06] MEDS ORDERED: Bupivacaine 0.5% SDV PF* 30ML VIAL ONE (12:50)
[2019-06-06] MEDS ORDERED: KETAMINE HCL* 50 MG/ML 10 ML VIAL ONE (12:51)
[2019-06-06] MEDS ORDERED: Propofol* 100 ML ONE (12:53)
[2019-06-06] MEDS ORDERED: Phenylephrine 40 MCG/ML SYRINGE ONE (12:58)
[2019-06-06] MEDS ORDERED: Naloxone* 0.4 MG/ML 1 ML VIAL IV PRN (13:43)
[2019-06-06] MEDS ORDERED: HYDROmorphone INJ1* 1 MG/ML SYRINGE IV PRN (13:43)
[2019-06-06] MEDS ORDERED: oxyCODONE TAB* 5 MG TAB PO PRN (13:43)
[2019-06-06] MEDS ORDERED: Ondansetron INJ* 2 MG/ML VIAL IV PRN ×2 (13:43→15:50)
[2019-06-06] MEDS ORDERED: Phenylephrine 10 MG/ML VIAL* 50 MG in NS 0.9% 250 ML* 245 ML IV PRN (15:21)
[2019-06-06] MEDS ORDERED: Phenylephrine 10 MG/ML VIAL* 50 MG in NS 0.9% 250 ML* 245 ML IV SCH (15:37)
[2019-06-06] MEDS ORDERED: Morphine INJ* 2 MG/ML 1 ML SYRINGE (TWO MG - NEW SYRINGE VERSION) IV PRN (15:50)
[2019-06-06] MEDS ORDERED: diPHENhydraMINE IV* 50 MG/ML 1 ml VIAL (BENADRYL) IV PRN (15:50)
[2019-06-06] MEDS ORDERED: Ondansetron TAB* 4 MG PO PRN (15:50)
[2019-06-06] MEDS ORDERED: Magnesium Hydroxide LIQ* 30 ML UDC PO PRN (15:50)
[2019-06-06] MEDS ORDERED: diPHENhydraMINE PO* 25 MG PO PRN (15:50)
[2019-06-06] MEDS ORDERED: Polyethylene Glycol 3350* 17 GM PACKET PO PRN (15:50)
[2019-06-06] MEDS ORDERED: Ondansetron ODT TAB* 4 MG PO PRN (15:50)
[2019-06-06] MEDS ORDERED: Nitroglycerin TAB 0.4 MG* 0.4 MG TAB SL PRN (15:54)
[2019-06-06] MEDS ORDERED: Aspirin EC TAB* 81 MG TAB.EC PO SCH (18:00)
[2019-06-06] MEDS ORDERED: ARIPiprazole TAB* 2 MG PO SCH (18:00)
--- NOTE | 2019-06-06 18:07 | OP ---
Operative Report - Blank - Operative Report Date of Operation: 06/06/19 Note: LEVI JAIME 1940 Date of Surgery: 06/06/19 Ana Paula Ward MD Development Trainer: Kerry BALDWIN did help throughout the procedure with preparation of the knee, wound retraction, manipulation of the knee, and wound closure. Anesthesiologist: Joel Ortiz MD Anesthesia Type: Spinal Preoperative Diagnosis: Right severe degenerative osteoarthritis of the knee Postoperative Diagnosis: As above Procedure Performed: Right Total Knee Arthroplasty Tourniquet time: 58 minutes Complications: None Specimen: Bone and cartilage from the right knee joint sent to pathology. Hardware Used: Cemented Francis and Nephew total knee hardware was used - For the femur a size 6 right legion posterior stabilized femoral component, for the tibia a size 6 right teddy II tibial baseplate, for the insert a size 9mm constrained posterior stabilized articular polyethylene insert, and for the patella a size 35 3-peg all poly patella. Brief History/Indication: LEVI JAIME was known in clinic and had a history of severe right knee pain and swelling. He failed conservative treatment with anti-inflammatories, pain pills, intra-articular injections and physical therapy. He elected to undergo right total knee arthroplasty due to continued pain and decreased quality of life. Radiographs showed severe end stage osteoarthritis of the knee with bone on bone contact. Informed consent was obtained from the patient. He understood the risks of surgery included but were not limited to: bleeding, infection, damage to nearby structures, intraoperative fracture, nerve palsy, failure of the hardware, early loosening, knee stiffness or loss of motion, anesthesia complications, stroke, heart attack , blood clot and . HE wished to proceed. Intra-Operative Findings: Intraoperatively the patient was noted to have severe loss of cartilage in all 3 compartments of the knee. His bone was extremely osteopenic. His preoperative valgus deformity measured 15 degrees and he had mcl laxity. Description of the Procedure: LEVI JAIME was identified in the preanesthesia unit. His right knee was marked as the correct operative side. Informed consent was signed and placed in the chart. The patient was taken to the operating room and placed under anesthesia without complication. A chavez catheter was placed. A tourniquet was placed on the right thigh. The right lower extremity was prepped and draped in the usual sterile fashion. Preoperative time-out was made to correctly identify the patient, side and site. Appropriate intraoperative antibiotics were given within one hour of incision. Tourniquet was inflated. A midline incision was made and carried sharply down to the extensor mechanism. A new 10 blade was used to make a standard medial parapatellar arthrotomy. The patella was subluxed laterally. Electrocautery was used to dissect soft tissue off the superomedial tibia to the midsagittal plane. The knee was flexed up. The anterior horn of the lateral meniscus and the ACL were sharply incised. A drill was used to enter the distal femur. The intramedullary distal femoral cutting guide was pinned on the distal femur. The oscillating saw was used to make the distal femoral cut. The external rotation guide was pinned on the distal femur and the distal femur was sized to a size 6. The size 6 multi-cutting jig was pinned on the distal femur. The oscillating saw was used to make the appropriate 4 chamfer cuts. Next the PCL was completely released. The extramedullary tibial cutting guide was pinned on the proximal tibia and the oscillating saw was used to make the proximal tibial cut perpendicular to the mechanical axis of the tibia. The bone was carefully removed. The knee was brought out into full extension. The spacer block was placed and had excellent fit with the knee in full extension. The medial and lateral ligaments were well balanced. The flexion and extension gaps were well balanced. The knee was flexed up. Lamina candy spreader was placed both medially and laterally. Any remaining meniscus was removed with electrocautery. Curved osteotome was used to remove any posterior osteophytes. The tibial tray and drop smith were placed and confirmed a satisfactory tibial cut. The size 6 right femoral trial was impacted onto the distal femur. This trial had excellent fit and stability. The box for the posterior stabilized implant was prepared using a box cut osteotome and a reamer. Next a tibial tray trial and 9 mm insert trial was placed. The knee was taken through a range of motion and had full extension to 130 degrees of flexion. Patellofemoral tracking was satisfactory. The patella was inverted and sized to a size 35. Three peg holes were drilled through the size 35 drill guide. The trial patella was placed and the knee was taken through a range of motion. There was satisfactory patellofemoral tracking. All trials were removed. The tibia was subluxed anteriorly and sized to a size 6. The proximal tibial was prepared with a size 6 keel punch. All bony cut surfaces were irrigated with sterile saline and dried. Final implants were cemented into place starting with the tibia, followed by the femur, and last the patella. A 9 mm insert trial was placed and the knee was brought into full extension. Tourniquet was turned down and the knee was copiously irrigated with sterile saline. Electrocautery was used to obtain meticulous hemostasis. Once the cement had fully cured, the insert trial was removed. Any excess cement was removed from around the hardware and capsule. Final insert chosen was a 9 mm posterior stabilized Teddy II articular insert size 5-6. Stability of the insert was checked and noted to be stable. The extensor mechanism was closed using number 1 vicryls. The rest of the incision was closed in a layered fashion using 0 and 2-0 vicryls. The skin was closed using 3-0 nylon suture. Sterile xeroform, 4x4s and webril were used to cover the incision. Wes wrap and cold pack were used to cover the dressings. The patients anesthesia was reversed without difficulty. He was taken to the PACU in stable condition. Intended weight-bearing will be as tolerated.
[2019-06-06] MEDS: Lactated Ringers 1000 ML Bag* 1,000 ML IV SCH (19:00)
[2019-06-06] MEDS: traMADol TAB* 50 MG PO PRN (20:06)
[2019-06-06] MEDS: ceFAZolin 1 GM ADVAN(*) 1 GM in NS 0.9% 50 ML* 50 ML IVPB SCH (20:30)
--- NOTE | 2019-06-06 21:04 | CONS ---
HOSPITAL MEDICINE CONSULTATION REPORT: DATE OF CONSULT: 06/06/19 PROVIDER: Clara Stewart NP ATTENDING PHYSICIAN: Dr. Ana Paula Ward.* CONSULTING PHYSICIAN: Dr. Juan Ca (dictated by Clara Stewart NP) . REASON FOR CONSULT: Co-management of chronic medical conditions. HISTORY OF PRESENT ILLNESS: Mr. Lepe is a 78-year-old male with a past medical history significant for coronary artery disease, status post CABG; hypertension; high cholesterol; GERD; anxiety; depression; history of prostate cancer; history of abdominal aortic aneurysm with stent and repair; and mouth cancer, status post cancer removal, who presented to [facility] [place] for an elective right total knee arthroplasty with Dr. Ward. Please see dictated H and P from NICOLASA Gilmore, for complete details. In brief, the patient had ongoing pain and failed conservative measures; therefore, opted to proceed with right total knee arthroplasty with Dr. Ward. In the immediate postoperative period, the patient has no complaints. He denies any recent illnesses preoperatively. He denies any fever, chills, chest pain, shortness of breath. Denies any nausea, vomiting, diarrhea, abdominal pain. Denies any gross hematuria, dysuria, urinary frequency, urgency, or pain with urination. He denies any weakness on one side. Due to his history of coronary artery disease, hypertension, hyperlipidemia and GERD, Hospital Medicine was asked to see and help co-manage his care during his hospitalization. PAST MEDICAL HISTORY: Significant for: 1. Coronary artery disease, status post CABG. 2. Hypertension. 3. Hyperlipidemia. 4. GERD. 5. Anxiety. 6. Depression. 7. History of prostate cancer. 8. History of abdominal aortic aneurysm, status post stent and repair. 9. Oral cancer, status post surgical removal. PAST SURGICAL HISTORY: 1. CABG. 2. Prostatectomy. 4. Stenting in the aortic aneurysm. 5. Cardiac stents. 6. 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 HOME MEDICATIONS: Include: 1. Abilify 2 mg p.o. daily. 2. Rosuvastatin 40 mg p.o. daily. 3. Cartia XT 120 mg p.o. daily. 4. Aspirin 81 mg p.o. daily. 5. Lipitor 80 mg p.o. daily. 6. Prilosec 20 mg p.o. daily. 7. Nitro 0.4 mg q.5 minutes as needed for chest pain. 8. Multivitamin 1 tab p.o. daily. 9. Escitalopram 20 mg p.o. daily. 10. Tamsulosin 0.4 mg at bedtime. 11. [place]-3 fatty acids 520 mg p.o. b.i.d. 12. Remeron 15 mg at bedtime. 13. Colace 50 mg p.o. b.i.d. ALLERGIES: No known drug allergies. FAMILY HISTORY: Father with a history of hypertension. No reported history of diabetes. Mother with breast and bone cancer. SOCIAL HISTORY: The patient denies smoking, alcohol, or illicit drug use. Surrogate decision maker in the event he is unable to make his own decisions is his . He is a full code. REVIEW OF SYSTEMS: An 11-point review of systems was completed. All pertinent positives were mentioned in the HPI. PHYSICAL EXAM: General: At this time, Mr. Lepe is a 78-year-old male. He is drowsy, resting on the stretcher in PACU. He is in no acute distress. Vital Signs: Blood pressure 117/71, heart rate is 67, respirations are 14, O2 saturation 99%, temperature was 97.9. HEENT: Head is atraumatic, normocephalic. Eyes: EOMs are intact. Sclerae anicteric and not pale. Oral mucosa appeared to be moist. Neck is supple. Lungs are clear to auscultation bilaterally. No wheezes, rales, or rhonchi. Cardiac: S1, S2. Regular rate and rhythm. No murmurs, rubs, or gallops. Abdomen is soft and nontender. Bowel sounds are present x4. Extremities: He is able to move all 4 extremities. He does have a dressing that is dry and intact to his right knee. Pedal pulses are +2 bilaterally. There is no clubbing or cyanosis. Neurologic: He is awake and drowsy, resting on the stretcher in PACU. He has no gross focal deficits. He is alert and oriented x3. Speech is clear. Thought process is intact. Skin: He does have a dressing that is dry and intact to his right knee. DIAGNOSTIC STUDIES/LAB DATA: CBC from 05/27/19: WBCs are 4.3, RBCs 4.54, hemoglobin 13.7, hematocrit is 41, platelet count is 217. INR was 1.03. Sodium 139, potassium 4.3, chloride 106, carbon dioxide was 28, anion gap was 5 , BUN was 19, creatinine 1.02, glucose was 79, calcium was 9.3. ASTs were 19, ALTs were 21, alkaline phosphatase was 78. Urine was within normal limits with exception of ketones were trace. IMPRESSION AND PLAN: Mr. Lepe is a 78-year-old male with a past medical history significant for coronary artery disease with CABG; hypertension; high cholesterol; gastroesophageal reflux disease; anxiety; depression; history of prostate cancer; abdominal aortic aneurysm, status post stenting; and oral cancer, status post oral surgery for removal of palate cancer, who presented to [facility] – [place] for an elective right total knee arthroplasty with Dr. Ward. Our recommendations are as follows: 1. Status post right total knee arthroplasty. Management per Orthopedics. PT/ OT per Orthopedics. Bowel regimen per Orthopedics. Pain management per Orthopedics. DVT prophylaxis per Orthopedics. 2. Coronary artery disease. The patient should continue on his Cartia XT 120 mg p.o. daily. Resume aspirin 81 mg daily when able and Lipitor 80 mg p.o. daily. 3. Depression and anxiety. He should continue on escitalopram 20 mg p.o. daily. The patient should also continue his Abilify. 4. History of prostate cancer. The patient takes chronic tamsulosin. He should continue tamsulosin as previously prescribed. 5. FEN: He can have a heart-healthy diet. 6. Code status: He is a full code. 7. DVT prophylaxis: As per Orthopedics. TIME SPENT: Time spent on this consultation was approximately 45 minutes, greater than half that time was spent at the bedside reviewing events leading thus far to his hospitalization, performing physical exam, and reviewing my plan of care. I have discussed this with my attending, Dr. Juan Ca; he is in agreement with my plan. CLARA STEWART, JAYANT [id number]/[facility] #: [id number] ANMOL
[2019-06-06] MEDS ORDERED: Pantoprazole TAB * 40 MG TAB PO SCH (22:00)
[2019-06-06] MEDS: ARIPiprazole TAB* 2 MG PO SCH (22:35)
[2019-06-06] MEDS: Tamsulosin CAP* 0.4 MG PO SCH (22:36)
[2019-06-06] MEDS: Aspirin EC TAB* 81 MG TAB.EC PO SCH (22:36)
[2019-06-06] MEDS: Docusate CAP* 100 MG PO SCH (22:36)
[2019-06-06] MEDS: Cyclobenzaprine TAB* 10 MG PO PRN (22:36)
[2019-06-06] MEDS: Magnesium Hydroxide LIQ* 30 ML UDC PO SCH (22:36)
[2019-06-06] MEDS: Mirtazapine TAB* 15 MG PO SCH (22:36)
[2019-06-06] MEDS: Acetaminophen TAB* 325 MG PO SCH (23:04)
[2019-06-06] MEDS: oxyCODONE/Acetamin 5/325 MG* TAB PO PRN (23:04)
[2019-06-07] MEDS: ceFAZolin 1 GM ADVAN(*) 1 GM in NS 0.9% 50 ML* 50 ML IVPB SCH ×2 (04:06→11:45)
[2019-06-07] MEDS: oxyCODONE TAB* 5 MG TAB PO PRN ×2 (04:11→11:45)
[2019-06-07] MEDS: Lactated Ringers 1000 ML Bag* 1,000 ML IV SCH (04:12)
[2019-06-07] MEDS: Acetaminophen TAB* 325 MG PO SCH ×3 (05:03→21:28)
[2019-06-07 05:31] LABS: Hematocrit 37 % (42-52); Hemoglobin 12.5 g/dL (14.0-18.0); Mean Platelet Volume 8.3 fL (7.4-10.4); Platelet Count 213 10^3/uL (150-450)
[2019-06-07 05:53] LABS: BUN/Creatinine Ratio 16.8 (8-20); Calcium 8.8 mg/dL (8.6-10.3); EGFR African American 76.3 (>60); EGFR Non-African American 63.1 (>60); Potassium 4.3 mmol/L (3.5-5.0)
[2019-06-07] MEDS: Cyclobenzaprine TAB* 10 MG PO PRN (06:16)
--- NOTE | 2019-06-07 07:32 | PN ---
Subjective - Subjective Reason for Note: Progress Note Current Medications: Current Medications Acetaminophen (Tylenol Tab*) 975 mg PO Q8HR [facility] Last Admin: 06/07/19 05:03 Dose: Not Given Apixaban (Eliquis*) 2.5 mg PO BID [facility] Aripiprazole (Abilify Tab*) 2 mg PO 2100 [facility] Last Admin: 06/06/19 22:35 Dose: 2 mg Aspirin (Aspirin Ec Tab*) 81 mg PO 2100 [facility] Last Admin: 06/06/19 22:36 Dose: 81 mg Bisacodyl (Dulcolax Supp*) 10 mg [place] DAILY PRN PRN Reason: CONSTIPATION Cyclobenzaprine HCl (Flexeril Tab*) 10 mg PO Q6H PRN PRN Reason: SPASMS Last Admin: 06/07/19 06:16 Dose: 10 mg Diltiazem HCl (Cardizem Cd Cap*) 120 mg PO QAM [facility] Diphenhydramine HCl (Benadryl Iv*) 25 mg IV Q6H PRN PRN Reason: PRURITIS Diphenhydramine HCl (Benadryl Po*) 25 mg PO Q6H PRN PRN Reason: PRURITIS Docusate Sodium (Colace Cap*) 100 mg PO BID [facility] Last Admin: 06/06/19 22:36 Dose: 100 mg Escitalopram Oxalate (Lexapro *) 20 mg PO QAM [facility] Phenylephrine HCl 50 mg/ (Sodium Chloride) 250 mls @ 12.91 mls/hr IV Q19H [facility] Stop: 06/07/19 10:36 Last Admin: 06/06/19 20:08 Dose: Not Given Cefazolin Sodium 1 gm/ Sodium (Chloride) 50 mls @ 200 mls/hr IVPB Q8H [facility] Stop: 06/07/19 12:14 Last Admin: 06/07/19 04:06 Dose: 200 mls/hr Lactated Ringer's (Lactated Ringers 1000 Ml Bag*) 1,000 mls @ 100 mls/hr IV PER RATE [facility] Last Admin: 06/07/19 04:12 Dose: 100 mls/hr Lactulose (Lactulose*) 30 ml PO BID PRN PRN Reason: CONSTIPATION Magnesium Hydroxide (Milk Of Magnesia Liq*) 30 ml PO BID [facility] Last Admin: 06/06/19 22:36 Dose: 30 ml Magnesium Hydroxide (Milk Of Magnesia Liq*) 30 ml PO Q6H PRN PRN Reason: CONSTIPATION Mirtazapine (Remeron Tab*) 15 mg PO BEDTIME [facility] Last Admin: 06/06/19 22:36 Dose: 15 mg Morphine Sulfate (Morphine Inj (Syringe))*) 2 mg IV Q4H PRN PRN Reason: Pain - Unrelieved Multivitamins (Theragran Tab*) 1 tab PO DAILY [facility] Nitroglycerin (Nitroglycerin Tab 0.4 Mg*) 0.4 mg SL Q5M PRN PRN Reason: CHEST PAIN Ondansetron HCl (Zofran Inj*) 4 mg IV Q6H PRN PRN Reason: NAUSEA Ondansetron HCl (Zofran Odt Tab*) 4 mg PO Q6H PRN PRN Reason: NAUSEA Ondansetron HCl (Zofran Tab*) 4 mg PO Q6H PRN PRN Reason: NAUSEA Oxycodone HCl (Roxycodone Tab*) 10 mg PO Q4H PRN PRN Reason: Pain - Breakthrough Last Admin: 06/07/19 04:11 Dose: 10 mg Oxycodone/Acetaminophen (Percocet 5/325 Tab*) 2 tab PO Q4H PRN PRN Reason: PAIN - SEVERE Last Admin: 06/06/19 23:04 Dose: 2 tab Pantoprazole Sodium (Protonix Tab*) 40 mg PO QPM [facility] Polyethylene Glycol/Electrolytes (Miralax*) 17 gm PO DAILY PRN PRN Reason: Constipation Tamsulosin HCl (Flomax Cap*) 0.4 mg PO BEDTIME [facility] Last Admin: 06/06/19 22:36 Dose: 0.4 mg Tramadol HCl (Ultram*) 50 mg PO Q6H PRN PRN Reason: PAIN - MODERATE Last Admin: 06/06/19 20:06 Dose: 50 mg Home Medications: Home Medications Medication Instructions Recorded Confirmed Type Aspirin [Aspirin Adult Low Dose] 81 mg PO QPM 08/26/16 06/06/19 History Docusate Sodium [Stool Softener] 50 mg PO BID 08/26/16 06/06/19 History Escitalopram Oxalate [Lexapro] 20 mg PO QAM 08/26/16 06/06/19 History Nitroglycerin TAB 0.4 MG* 0.4 mg SL Q5M PRN 08/26/16 06/06/19 History Omeprazole CAP (NF) [Prilosec CAP* 20 mg PO QPM 08/26/16 06/06/19 History 20 MG] ARIPiprazole TAB* [Abilify TAB*] 2 mg PO QPM 03/19/19 06/06/19 History Multivitamins/Minerals TAB* 1 tab PO QAM 03/19/19 06/06/19 History [Theragran/minerals TAB*] [place]-3 Fatty Acids [Super Twin 520 mg PO BID 03/19/19 06/06/19 History Epa/Dha] Diltiazem XR EXTEND Releas(NF) 120 mg PO QAM 05/27/19 06/06/19 History [Cartia XR (NF)] Mirtazapine TAB* [Remeron TAB*] 15 mg PO BEDTIME 05/27/19 06/06/19 History Tamsulosin CAP* [Flomax CAP*] 0.4 mg PO BEDTIME 05/27/19 06/06/19 History Allergies: Allergies Allergy/AdvReac Type Severity Reaction Status Date / Time No Known Allergies Allergy Verified 06/06/19 11:23 Objective - Vital Signs Vital Signs: Vital Signs 06/06/19 06/06/19 06/06/19 11:25 15:45 15:55 Temperature 97.9 F 96.8 F Pulse Rate 76 67 67 Respiratory 16 22 14 Rate Blood Pressure 161/88 122/74 114/67 (mmHg) O2 Sat by Pulse 95 97 98 Oximetry 06/06/19 06/06/19 06/06/19 16:00 16:05 16:10 Temperature Pulse Rate 67 68 67 Respiratory 14 15 13 Rate Blood Pressure 111/65 117/68 117/71 (mmHg) O2 Sat by Pulse 97 97 99 Oximetry 06/06/19 06/06/19 06/06/19 16:20 16:25 16:30 Temperature Pulse Rate 69 71 70 Respiratory 12 14 14 Rate Blood Pressure 130/78 131/77 129/76 (mmHg) O2 Sat by Pulse 99 98 99 Oximetry 06/06/19 06/06/19 06/06/19 16:35 16:40 16:45 Temperature Pulse Rate 73 69 70 Respiratory 16 15 16 Rate Blood Pressure 131/78 144/78 128/72 (mmHg) O2 Sat by Pulse 92 87 100 Oximetry 06/06/19 06/06/19 06/06/19 16:50 16:55 17:00 Temperature Pulse Rate 72 71 74 Respiratory 20 20 15 Rate Blood Pressure 127/75 129/78 126/78 (mmHg) O2 Sat by Pulse 100 100 98 Oximetry 06/06/19 06/06/19 06/06/19 17:05 17:10 17:15 Temperature Pulse Rate 75 74 74 Respiratory 15 19 13 Rate Blood Pressure 138/73 137/79 139/76 (mmHg) O2 Sat by Pulse 99 98 98 Oximetry 06/06/19 06/06/19 06/06/19 17:20 17:25 17:30 Temperature Pulse Rate 75 75 77 Respiratory 12 13 12 Rate Blood Pressure 142/80 137/82 154/76 (mmHg) O2 Sat by Pulse 98 98 98 Oximetry 06/06/19 06/06/19 06/06/19 17:35 17:40 17:45 Temperature Pulse Rate 75 77 79 Respiratory 13 14 11 Rate Blood Pressure 138/82 139/81 147/84 (mmHg) O2 Sat by Pulse 98 98 98 Oximetry 06/06/19 06/06/19 06/06/19 17:50 17:55 18:00 Temperature Pulse Rate 78 81 80 Respiratory 14 14 12 Rate Blood Pressure 143/84 151/85 (mmHg) O2 Sat by Pulse 98 98 97 Oximetry 06/06/19 06/06/19 06/06/19 18:52 19:41 19:56 Temperature 97.4 F 97.6 F Pulse Rate 92 97 Respiratory 18 12 12 Rate Blood Pressure 127/73 140/77 (mmHg) O2 Sat by Pulse 99 96 Oximetry 06/06/19 06/06/19 06/06/19 20:00 20:06 20:43 Temperature 97.7 F Pulse Rate 90 Respiratory 12 12 18 Rate Blood Pressure 153/71 (mmHg) O2 Sat by Pulse 95 100 Oximetry 06/06/19 06/06/19 06/06/19 22:00 22:36 22:40 Temperature 99.1 F Pulse Rate 96 Respiratory 16 18 18 Rate Blood Pressure 150/75 (mmHg) O2 Sat by Pulse 98 Oximetry 06/06/19 06/06/19 06/07/19 22:47 23:04 00:00 Temperature Pulse Rate Respiratory 18 18 16 Rate Blood Pressure (mmHg) O2 Sat by Pulse 96 Oximetry 06/07/19 06/07/19 06/07/19 00:50 00:51 00:59 Temperature 97.9 F Pulse Rate 99 Respiratory 14 Rate Blood Pressure 120/60 (mmHg) O2 Sat by Pulse 94 96 Oximetry 06/07/19 06/07/19 06/07/19 01:35 02:00 03:26 Temperature 98 F Pulse Rate 98 Respiratory 12 12 12 Rate Blood Pressure 133/68 (mmHg) O2 Sat by Pulse 94 93 Oximetry 06/07/19 06/07/19 06/07/19 04:00 04:11 06:00 Temperature Pulse Rate Respiratory 14 14 16 Rate Blood Pressure (mmHg) O2 Sat by Pulse 92 95 Oximetry 06/07/19 06/07/19 06:14 06:16 Temperature Pulse Rate Respiratory 16 16 Rate Blood Pressure (mmHg) O2 Sat by Pulse Oximetry - Intake and Output Intake and Output: Intake & Output 06/04/19 06/05/19 06/06/19 06/07/19 11:59 11:59 11:59 11:59 Intake Total 2718 Output Total 3250 Balance -532 Weight 189 lb 12.8 oz Intake: IV Fluids 2200 LR 2200 IVPB 58 ABX - CEFAZOLIN 58 Oral 460 Output: [place] 3250 ADLs: Meal Record Start: 06/06/19 18: 51 Freq: Status: Active Protocol: Created 06/06/19 18:51 [id number] (Rec: 06/06/19 18:51 [id number]) Intake and Output Start: 06/06/19 18: 51 Freq: DAILY@0600,1400,2200 Status: Active Protocol: Created 06/06/19 18:51 [id number] (Rec: 06/06/19 18:51 [id number]) Document 06/06/19 20:00 [id number] (Rec: 06/06/19 20:43 [id number]) Document 06/06/19 21:54 [id number] (Rec: 06/06/19 21:54 [id number]) Document 06/07/19 06:00 [id number] (Rec: 06/07/19 06:12 [id number]) Results - Results Lab Results: Laboratory Results - last 24 hr 06/06/19 06/06/19 06/07/19 11:45 11:45 04:48 Hgb 12.5 L Hct 37 L Plt Count 213 MPV 8.3 INR (Anticoag Therapy) 1.03 Sodium Potassium Chloride Carbon Dioxide Anion Gap BUN Creatinine Est GFR ( Amer) Est GFR (Non-Af Amer) BUN/Creatinine Ratio Glucose Calcium Blood Type O Positive Antibody Screen Negative 06/07/19 04:48 Hgb Hct Plt Count MPV INR (Anticoag Therapy) Sodium 140 Potassium 4.3 Chloride 107 Carbon Dioxide 26 Anion Gap 7 BUN 19 Creatinine 1.13 Est GFR ( Amer) 76.3 Est GFR (Non-Af Amer) 63.1 BUN/Creatinine Ratio 16.8 Glucose 148 H Calcium 8.8 Blood Type Antibody Screen Assessment - Problem List Assessment: Patient Problems Abdominal aortic aneurysm without rupture (Active) Anxiety (Active) Coronary arteriosclerosis (Active) Essential hypertension (Active) Vasovagal attack (Active)
--- NOTE | 2019-06-07 07:40 | PN ---
Subjective - Subjective Reason for Note: Consultation Note History: internal medicine/primary care consultation I note that a consultation was performed without my knowledge by Clara Narvaez NP yesterday postoperatively, although there were no acute medical complications. Aníbal Lepe is 1 day post right TKA. He had spinal anesthesia and conscious sedation. He has done very well and has well controlled pain. He has had no acute medical complaints. His Caldwell catheter was removed this morning. I note that he has not yet eaten anything and he has a reduced appetite. Active Problems: Active Problems Status post total knee replacement, right (Acute) Z96.651 Abdominal aortic aneurysm without rupture (Chronic) I71.4 Anxiety (Chronic) F41.9 BPH (benign prostatic hyperplasia) (Chronic) N40.0 Coronary arteriosclerosis (Chronic) I25.10 Depression (Chronic) F32.9 Essential hypertension (Chronic) I10 Hypercholesteremia (Chronic) E78.00 Current Medications: Current Medications Acetaminophen (Tylenol Tab*) 975 mg PO Q8HR [facility] Last Admin: 06/07/19 05:03 Dose: Not Given Apixaban (Eliquis*) 2.5 mg PO BID [facility] Aripiprazole (Abilify Tab*) 2 mg PO 2100 [facility] Last Admin: 06/06/19 22:35 Dose: 2 mg Aspirin (Aspirin Ec Tab*) 81 mg PO 2100 [facility] Last Admin: 06/06/19 22:36 Dose: 81 mg Bisacodyl (Dulcolax Supp*) 10 mg [place] DAILY PRN PRN Reason: CONSTIPATION Cyclobenzaprine HCl (Flexeril Tab*) 10 mg PO Q6H PRN PRN Reason: SPASMS Last Admin: 06/07/19 06:16 Dose: 10 mg Diltiazem HCl (Cardizem Cd Cap*) 120 mg PO QAM [facility] Diphenhydramine HCl (Benadryl Iv*) 25 mg IV Q6H PRN PRN Reason: PRURITIS Diphenhydramine HCl (Benadryl Po*) 25 mg PO Q6H PRN PRN Reason: PRURITIS Docusate Sodium (Colace Cap*) 100 mg PO BID [facility] Last Admin: 06/06/19 22:36 Dose: 100 mg Escitalopram Oxalate (Lexapro *) 20 mg PO QAM [facility] Phenylephrine HCl 50 mg/ (Sodium Chloride) 250 mls @ 12.91 mls/hr IV Q19H [facility] Stop: 06/07/19 10:36 Last Admin: 06/06/19 20:08 Dose: Not Given Cefazolin Sodium 1 gm/ Sodium (Chloride) 50 mls @ 200 mls/hr IVPB Q8H [facility] Stop: 06/07/19 12:14 Last Admin: 06/07/19 04:06 Dose: 200 mls/hr Lactated Ringer's (Lactated Ringers 1000 Ml Bag*) 1,000 mls @ 100 mls/hr IV PER RATE [facility] Last Admin: 06/07/19 04:12 Dose: 100 mls/hr Lactulose (Lactulose*) 30 ml PO BID PRN PRN Reason: CONSTIPATION Magnesium Hydroxide (Milk Of Magnesia Liq*) 30 ml PO BID [facility] Last Admin: 06/06/19 22:36 Dose: 30 ml Magnesium Hydroxide (Milk Of Magnesia Liq*) 30 ml PO Q6H PRN PRN Reason: CONSTIPATION Mirtazapine (Remeron Tab*) 15 mg PO BEDTIME [facility] Last Admin: 06/06/19 22:36 Dose: 15 mg Morphine Sulfate (Morphine Inj (Syringe))*) 2 mg IV Q4H PRN PRN Reason: Pain - Unrelieved Multivitamins (Theragran Tab*) 1 tab PO DAILY [facility] Nitroglycerin (Nitroglycerin Tab 0.4 Mg*) 0.4 mg SL Q5M PRN PRN Reason: CHEST PAIN Ondansetron HCl (Zofran Inj*) 4 mg IV Q6H PRN PRN Reason: NAUSEA Ondansetron HCl (Zofran Odt Tab*) 4 mg PO Q6H PRN PRN Reason: NAUSEA Ondansetron HCl (Zofran Tab*) 4 mg PO Q6H PRN PRN Reason: NAUSEA Oxycodone HCl (Roxycodone Tab*) 10 mg PO Q4H PRN PRN Reason: Pain - Breakthrough Last Admin: 06/07/19 04:11 Dose: 10 mg Oxycodone/Acetaminophen (Percocet 5/325 Tab*) 2 tab PO Q4H PRN PRN Reason: PAIN - SEVERE Last Admin: 06/06/19 23:04 Dose: 2 tab Pantoprazole Sodium (Protonix Tab*) 40 mg PO QPM [facility] Polyethylene Glycol/Electrolytes (Miralax*) 17 gm PO DAILY PRN PRN Reason: Constipation Tamsulosin HCl (Flomax Cap*) 0.4 mg PO BEDTIME [facility] Last Admin: 06/06/19 22:36 Dose: 0.4 mg Tramadol HCl (Ultram*) 50 mg PO Q6H PRN PRN Reason: PAIN - MODERATE Last Admin: 06/06/19 20:06 Dose: 50 mg - Review of Systems Constitutional Symptoms: No: Fever Pulmonary: Negative: Cough, Sputum, Respiratory Distress, Shortness of Breath Cardiology: Negative: Chest Pain, Palpitations, Swelling of Ankles Gastroenterology: Positive: Anorexia, Change in Bowel Habits - passing flatus, but no BM Negative: Abdominal Pain, Nausea, Vomiting Psychiatry: Positive: Anxiety - mildly anxious, but relieved the surgery is completed Home Medications: Home Medications Medication Instructions Recorded Confirmed Type Aspirin [Aspirin Adult Low Dose] 81 mg PO QPM 08/26/16 06/06/19 History Docusate Sodium [Stool Softener] 50 mg PO BID 08/26/16 06/06/19 History Escitalopram Oxalate [Lexapro] 20 mg PO QAM 08/26/16 06/06/19 History Nitroglycerin TAB 0.4 MG* 0.4 mg SL Q5M PRN 08/26/16 06/06/19 History Omeprazole CAP (NF) [Prilosec CAP* 20 mg PO QPM 08/26/16 06/06/19 History 20 MG] ARIPiprazole TAB* [Abilify TAB*] 2 mg PO QPM 03/19/19 06/06/19 History Multivitamins/Minerals TAB* 1 tab PO QAM 03/19/19 06/06/19 History [Theragran/minerals TAB*] [place]-3 Fatty Acids [Super Twin 520 mg PO BID 03/19/19 06/06/19 History Epa/Dha] Diltiazem XR EXTEND Releas(NF) 120 mg PO QAM 05/27/19 06/06/19 History [Cartia XR (NF)] Mirtazapine TAB* [Remeron TAB*] 15 mg PO BEDTIME 05/27/19 06/06/19 History Tamsulosin CAP* [Flomax CAP*] 0.4 mg PO BEDTIME 05/27/19 06/06/19 History Allergies: Allergies Allergy/AdvReac Type Severity Reaction Status Date / Time No Known Allergies Allergy Verified 06/06/19 11:23 Objective - Vital Signs Vital Signs: Vital Signs 06/06/19 06/06/19 06/06/19 11:25 15:45 15:55 Temperature 97.9 F 96.8 F Pulse Rate 76 67 67 Respiratory 16 22 14 Rate Blood Pressure 161/88 122/74 114/67 (mmHg) O2 Sat by Pulse 95 97 98 Oximetry 06/06/19 06/06/19 06/06/19 16:00 16:05 16:10 Temperature Pulse Rate 67 68 67 Respiratory 14 15 13 Rate Blood Pressure 111/65 117/68 117/71 (mmHg) O2 Sat by Pulse 97 97 99 Oximetry 06/06/19 06/06/19 06/06/19 16:20 16:25 16:30 Temperature Pulse Rate 69 71 70 Respiratory 12 14 14 Rate Blood Pressure 130/78 131/77 129/76 (mmHg) O2 Sat by Pulse 99 98 99 Oximetry 06/06/19 06/06/19 06/06/19 16:35 16:40 16:45 Temperature Pulse Rate 73 69 70 Respiratory 16 15 16 Rate Blood Pressure 131/78 144/78 128/72 (mmHg) O2 Sat by Pulse 92 87 100 Oximetry 06/06/19 06/06/19 06/06/19 16:50 16:55 17:00 Temperature Pulse Rate 72 71 74 Respiratory 20 20 15 Rate Blood Pressure 127/75 129/78 126/78 (mmHg) O2 Sat by Pulse 100 100 98 Oximetry 06/06/19 06/06/19 06/06/19 17:05 17:10 17:15 Temperature Pulse Rate 75 74 74 Respiratory 15 19 13 Rate Blood Pressure 138/73 137/79 139/76 (mmHg) O2 Sat by Pulse 99 98 98 Oximetry 06/06/19 06/06/19 06/06/19 17:20 17:25 17:30 Temperature Pulse Rate 75 75 77 Respiratory 12 13 12 Rate Blood Pressure 142/80 137/82 154/76 (mmHg) O2 Sat by Pulse 98 98 98 Oximetry 06/06/19 06/06/19 06/06/19 17:35 17:40 17:45 Temperature Pulse Rate 75 77 79 Respiratory 13 14 11 Rate Blood Pressure 138/82 139/81 147/84 (mmHg) O2 Sat by Pulse 98 98 98 Oximetry 06/06/19 06/06/19 06/06/19 17:50 17:55 18:00 Temperature Pulse Rate 78 81 80 Respiratory 14 14 12 Rate Blood Pressure 143/84 151/85 (mmHg) O2 Sat by Pulse 98 98 97 Oximetry 06/06/19 06/06/19 06/06/19 18:52 19:41 19:56 Temperature 97.4 F 97.6 F Pulse Rate 92 97 Respiratory 18 12 12 Rate Blood Pressure 127/73 140/77 (mmHg) O2 Sat by Pulse 99 96 Oximetry 06/06/19 06/06/19 06/06/19 20:00 20:06 20:43 Temperature 97.7 F Pulse Rate 90 Respiratory 12 12 18 Rate Blood Pressure 153/71 (mmHg) O2 Sat by Pulse 95 100 Oximetry 06/06/19 06/06/19 06/06/19 22:00 22:36 22:40 Temperature 99.1 F Pulse Rate 96 Respiratory 16 18 18 Rate Blood Pressure 150/75 (mmHg) O2 Sat by Pulse 98 Oximetry 06/06/19 06/06/19 06/07/19 22:47 23:04 00:00 Temperature Pulse Rate Respiratory 18 18 16 Rate Blood Pressure (mmHg) O2 Sat by Pulse 96 Oximetry 06/07/19 06/07/19 06/07/19 00:50 00:51 00:59 Temperature 97.9 F Pulse Rate 99 Respiratory 14 Rate Blood Pressure 120/60 (mmHg) O2 Sat by Pulse 94 96 Oximetry 06/07/19 06/07/19 06/07/19 01:35 02:00 03:26 Temperature 98 F Pulse Rate 98 Respiratory 12 12 12 Rate Blood Pressure 133/68 (mmHg) O2 Sat by Pulse 94 93 Oximetry 06/07/19 06/07/19 06/07/19 04:00 04:11 06:00 Temperature Pulse Rate Respiratory 14 14 16 Rate Blood Pressure (mmHg) O2 Sat by Pulse 92 95 Oximetry 06/07/19 06/07/19 06:14 06:16 Temperature Pulse Rate Respiratory 16 16 Rate Blood Pressure (mmHg) O2 Sat by Pulse Oximetry - Intake and Output Intake and Output: Intake & Output 06/04/19 06/05/19 06/06/19 06/07/19 11:59 11:59 11:59 11:59 Intake Total 2718 Output Total 3250 Balance -532 Weight 189 lb 12.8 oz Intake: IV Fluids 2200 LR 2200 IVPB 58 ABX - CEFAZOLIN 58 Oral 460 Output: Caldwell 3250 ADLs: Meal Record Start: 06/06/19 18: 51 Freq: Status: Active Protocol: Created 06/06/19 18:51 [id number] (Rec: 06/06/19 18:51 [id number] [id number]) Intake and Output Start: 06/06/19 18: 51 Freq: DAILY@0600,1400,2200 Status: Active Protocol: Created 06/06/19 18:51 [id number] (Rec: 06/06/19 18:51 [id number] SSU-C12) Document 06/06/19 20:00 [id number] (Rec: 06/06/19 20:43 [id number] SSU-M07) Document 06/06/19 21:54 [id number] (Rec: 06/06/19 21:54 [id number] SSU-M07) Document 06/07/19 06:00 [id number] (Rec: 06/07/19 06:12 [id number] [id number]) - Physical Exam General Physical Exam Comment: He is warm and well perfused, well hydrated. He is in no acute distress. He is alert, oriented and engaged in his condition. General: No Cyanosis Lungs and Chest: Yes: Chest Expansion Full, Chest Expansion Symetrica, Percussion Note Resonant, Vessicular Breath Sounds. No: Crackles, Wheezes Heart Rate and Rhythm: Regular Additional Cardiovascular: Yes: Normal Heart Sounds. No: Heart Murmur, Pedal Edema Abdominal Exam: Yes: Soft, Bowel Sounds Present. No: Distention, Abdominal Mass , Abdominal Tenderness, Guarding, Rebound Tenderness - Extremities Cranial Nerves II-XII Intact: Yes Limbs: Normal Power, Normal Tone - Neuro Orientation: A/O x3 Psychiatric: Normal Results - Results Lab Results: Laboratory Results - last 24 hr 06/06/19 06/06/19 06/07/19 11:45 11:45 04:48 Hgb 12.5 L Hct 37 L Plt Count 213 MPV 8.3 INR (Anticoag Therapy) 1.03 Sodium Potassium Chloride Carbon Dioxide Anion Gap BUN Creatinine Est GFR ( Amer) Est GFR (Non-Af Amer) BUN/Creatinine Ratio Glucose Calcium Blood Type O Positive Antibody Screen Negative 06/07/19 04:48 Hgb Hct Plt Count MPV INR (Anticoag Therapy) Sodium 140 Potassium 4.3 Chloride 107 Carbon Dioxide 26 Anion Gap 7 BUN 19 Creatinine 1.13 Est GFR ( Amer) 76.3 Est GFR (Non-Af Amer) 63.1 BUN/Creatinine Ratio 16.8 Glucose 148 H Calcium 8.8 Blood Type Antibody Screen Assessment - Problem List Assessment: Patient Problems Status post total knee replacement, right (Acute) Abdominal aortic aneurysm without rupture (Chronic) Anxiety (Chronic) BPH (benign prostatic hyperplasia) (Chronic) Coronary arteriosclerosis (Chronic) Depression (Chronic) Essential hypertension (Chronic) Hypercholesteremia (Chronic) Plan: Status post total knee replacement, right (Acute) Aníbal Lepe is 1 day post right TKA - he is recovering well. He has good pain control and has already stood by the side of his bed. He is hoping for discharge as soon as possible. He tolerated the spinal anesthesia combined with conscious sedation. Thus far the procedure has not been complicated Secondary diagnoses BPH (benign prostatic hyperplasia) (Chronic) His Caldwell was removed - prostatic urinary obstruction is the most likely complication at this stage. Abdominal aortic aneurysm without rupture (Chronic) inactive Anxiety (Chronic) This is under control Coronary arteriosclerosis (Chronic) asymptomatic and no signs of any complications Depression (Chronic) stable Essential hypertension (Chronic) well controlled Hypercholesteremia (Chronic) continue current Rx I think he is stable from the medical point of view. I will defer decision about discharge to Dr. Ward's team. There is no need for further medical follow up during this hospital stay, unless he develops any acute complications.
[2019-06-07] MEDS: Apixaban* 2.5 MG TAB PO SCH ×2 (08:45→21:25)
[2019-06-07] MEDS: Vitamin THERAPEUTIC TAB PO SCH (08:45)
[2019-06-07] MEDS: Escitalopram * 20 MG TABLET PO SCH (08:46)
[2019-06-07] MEDS: Docusate CAP* 100 MG PO SCH ×2 (08:46→21:26)
[2019-06-07] MEDS: Magnesium Hydroxide LIQ* 30 ML UDC PO SCH ×2 (08:46→21:29)
[2019-06-07] MEDS: oxyCODONE/Acetamin 5/325 MG* TAB PO PRN (08:46)
[2019-06-07] MEDS: Diltiazem CD CAP* 120 MG PO SCH (08:46)
[2019-06-07] MEDS: traMADol TAB* 50 MG PO PRN (17:17)
[2019-06-07] MEDS: Aspirin EC TAB* 81 MG TAB.EC PO SCH (21:25)
[2019-06-07] MEDS: Tamsulosin CAP* 0.4 MG PO SCH (21:25)
[2019-06-07] MEDS: Mirtazapine TAB* 15 MG PO SCH (21:26)
[2019-06-07] MEDS: ARIPiprazole TAB* 2 MG PO SCH (21:28)
[2019-06-07] MEDS: Pantoprazole TAB * 40 MG TAB PO SCH (21:50)
[2019-06-08 04:52] LABS: Hematocrit 34 % (42-52); Hemoglobin 11.3 g/dL (14.0-18.0); Mean Platelet Volume 7.7 fL (7.4-10.4); Platelet Count 190 10^3/uL (150-450)
[2019-06-08] MEDS: Acetaminophen TAB* 325 MG PO SCH ×3 (05:59→22:44)
--- NOTE | 2019-06-08 08:17 | PN ---
Progress Note - Progress Note Date of Service: 06/08/19 SOAP: Subjective: [Pt reports doing well. Pain managed with Percocet. Denies CP, SOB, dizziness , N/V. Appetite improved. Feels ready to go home.] Objective: [A and O x3, NAD R knee dressing changed. Surgical wound benign. Claves soft, NT. Distal gross motor and NV function intact. Vital Signs: Temp Pulse Resp BP Pulse Ox 99.1 F 79 18 142/64 95 06/08/19 08:10 06/08/19 08:10 06/08/19 08:10 06/08/19 08:10 06/08/19 08:10 Laboratory Results - last 24 hr 06/08/19 04:41 Hgb 11.3 L Hct 34 L Plt Count 190 MPV 7.7 ] Assessment: [s/p R TKA POD #2] Plan: [PT Plan to D/C pt home with services today Kathe Bautista F/U with Dr. Ward in 2 weeks]
[2019-06-08] MEDS: Magnesium Hydroxide LIQ* 30 ML UDC PO SCH ×2 (08:31→20:07)
[2019-06-08] MEDS: traMADol TAB* 50 MG PO PRN (08:31)
[2019-06-08] MEDS: Diltiazem CD CAP* 120 MG PO SCH (08:31)
[2019-06-08] MEDS: Vitamin THERAPEUTIC TAB PO SCH (08:31)
[2019-06-08] MEDS: Escitalopram * 20 MG TABLET PO SCH (08:31)
[2019-06-08] MEDS: Apixaban* 2.5 MG TAB PO SCH ×2 (08:32→20:12)
[2019-06-08] MEDS: Docusate CAP* 100 MG PO SCH ×2 (08:32→20:07)
--- NOTE | 2019-06-08 15:42 | PN ---
Subjective - Subjective Reason for Note: Progress Note History: He was due to go home today. However, his O2 desaturated into the low 80s. He has required O2 by [place]. He also was more drowsy. He has had some MOM and has had frequent defecation. Now he is sitting in a chair and is alert and oriented. He denies chest pain, palpitations or dyspnea. He has no edema. He is not coughing Active Problems: Active Problems Hypoxemia (Acute) R09.02 Status post total knee replacement, right (Acute) Z96.651 Abdominal aortic aneurysm without rupture (Chronic) I71.4 Anxiety (Chronic) F41.9 BPH (benign prostatic hyperplasia) (Chronic) N40.0 Coronary arteriosclerosis (Chronic) I25.10 Depression (Chronic) F32.9 Essential hypertension (Chronic) I10 Hypercholesteremia (Chronic) E78.00 Current Medications: Current Medications Acetaminophen (Tylenol Tab*) 975 mg PO Q8HR [facility] Last Admin: 06/08/19 13:51 Dose: 975 mg Apixaban (Eliquis*) 2.5 mg PO BID [facility] Last Admin: 06/08/19 08:32 Dose: 2.5 mg Aripiprazole (Abilify Tab*) 2 mg PO 2100 [facility] Last Admin: 06/07/19 21:28 Dose: 2 mg Aspirin (Aspirin Ec Tab*) 81 mg PO 2100 [facility] Last Admin: 06/07/19 21:25 Dose: 81 mg Bisacodyl (Dulcolax Supp*) 10 mg [place] DAILY PRN PRN Reason: CONSTIPATION Cyclobenzaprine HCl (Flexeril Tab*) 10 mg PO Q6H PRN PRN Reason: SPASMS Last Admin: 06/07/19 06:16 Dose: 10 mg Diltiazem HCl (Cardizem Cd Cap*) 120 mg PO QAM [facility] Last Admin: 06/08/19 08:31 Dose: 120 mg Diphenhydramine HCl (Benadryl Iv*) 25 mg IV Q6H PRN PRN Reason: PRURITIS Diphenhydramine HCl (Benadryl Po*) 25 mg PO Q6H PRN PRN Reason: PRURITIS Docusate Sodium (Colace Cap*) 100 mg PO BID [facility] Last Admin: 06/08/19 08:32 Dose: 100 mg Escitalopram Oxalate (Lexapro *) 20 mg PO QAM [facility] Last Admin: 06/08/19 08:31 Dose: 20 mg Lactulose (Lactulose*) 30 ml PO BID PRN PRN Reason: CONSTIPATION Magnesium Hydroxide (Milk Of Magnesia Liq*) 30 ml PO BID [facility] Last Admin: 06/08/19 08:31 Dose: 30 ml Magnesium Hydroxide (Milk Of Magnesia Liq*) 30 ml PO Q6H PRN PRN Reason: CONSTIPATION Mirtazapine (Remeron Tab*) 15 mg PO BEDTIME [facility] Last Admin: 06/07/19 21:26 Dose: 15 mg Multivitamins (Theragran Tab*) 1 tab PO DAILY [facility] Last Admin: 06/08/19 08:31 Dose: 1 tab Nitroglycerin (Nitroglycerin Tab 0.4 Mg*) 0.4 mg SL Q5M PRN PRN Reason: CHEST PAIN Ondansetron HCl (Zofran Inj*) 4 mg IV Q6H PRN PRN Reason: NAUSEA Ondansetron HCl (Zofran Odt Tab*) 4 mg PO Q6H PRN PRN Reason: NAUSEA Ondansetron HCl (Zofran Tab*) 4 mg PO Q6H PRN PRN Reason: NAUSEA Pantoprazole Sodium (Protonix Tab*) 40 mg PO QPM [facility] Last Admin: 06/07/19 21:50 Dose: 40 mg Polyethylene Glycol/Electrolytes (Miralax*) 17 gm PO DAILY PRN PRN Reason: Constipation Tamsulosin HCl (Flomax Cap*) 0.4 mg PO BEDTIME [facility] Last Admin: 06/07/19 21:25 Dose: 0.4 mg Home Medications: Home Medications Medication Instructions Recorded Confirmed Type Docusate Sodium [Stool Softener] 50 mg PO BID 08/26/16 06/06/19 History Escitalopram Oxalate [Lexapro 20 20 mg PO QAM 08/26/16 06/06/19 History mg] Nitroglycerin TAB 0.4 MG* 0.4 mg SL Q5M PRN 08/26/16 06/06/19 History Omeprazole CAP (NF) [Prilosec CAP* 20 mg PO QPM 08/26/16 06/06/19 History 20 MG] ARIPiprazole TAB* [Abilify TAB*] 2 mg PO QPM 03/19/19 06/06/19 History Multivitamins/Minerals TAB* 1 tab PO QAM 03/19/19 06/06/19 History [Theragran/minerals TAB*] [place]-3 Fatty Acids [Super Twin 520 mg PO BID 03/19/19 06/06/19 History Epa-Dha] Diltiazem XR EXTEND Releas(NF) 120 mg PO QAM 05/27/19 06/06/19 History [Cartia XR (NF)] Mirtazapine TAB* [Remeron TAB*] 15 mg PO BEDTIME 05/27/19 06/06/19 History Tamsulosin CAP* [Flomax CAP*] 0.4 mg PO BEDTIME 05/27/19 06/06/19 History Allergies: Allergies Allergy/AdvReac Type Severity Reaction Status Date / Time No Known Allergies Allergy Verified 06/06/19 11:23 Objective - Vital Signs Vital Signs: Vital Signs 06/07/19 06/07/19 06/07/19 15:57 16:00 17:17 Temperature 97.9 F Pulse Rate 90 Respiratory 16 18 18 Rate Blood Pressure 119/60 (mmHg) O2 Sat by Pulse 93 93 Oximetry 06/07/19 06/07/19 06/07/19 18:00 20:00 20:14 Temperature 97.9 F Pulse Rate 97 Respiratory 18 18 16 Rate Blood Pressure 153/68 (mmHg) O2 Sat by Pulse 90 Oximetry 06/07/19 06/07/19 06/08/19 21:19 23:44 00:00 Temperature 98.7 F Pulse Rate 96 Respiratory 16 17 Rate Blood Pressure 142/72 (mmHg) O2 Sat by Pulse 93 92 Oximetry 06/08/19 06/08/19 06/08/19 01:12 04:15 08:00 Temperature 98.8 F Pulse Rate 90 Respiratory 16 16 Rate Blood Pressure 154/69 (mmHg) O2 Sat by Pulse 93 94 92 Oximetry 06/08/19 06/08/19 06/08/19 08:10 08:31 10:00 Temperature 99.1 F Pulse Rate 79 Respiratory 18 16 16 Rate Blood Pressure 142/64 (mmHg) O2 Sat by Pulse 95 92 Oximetry 06/08/19 06/08/19 06/08/19 10:03 10:14 11:27 Temperature Pulse Rate Respiratory 18 Rate Blood Pressure (mmHg) O2 Sat by Pulse 88 92 Oximetry 06/08/19 06/08/19 06/08/19 11:44 14:00 14:01 Temperature 98.1 F Pulse Rate 86 Respiratory 18 18 Rate Blood Pressure 137/71 (mmHg) O2 Sat by Pulse 91 89 93 Oximetry - Intake and Output Intake and Output: Intake & Output 06/06/19 06/07/19 06/08/19 06/09/19 11:59 11:59 11:59 11:59 Intake Total 3517 1255 360 Output Total 3325 900 Balance 192 355 360 Weight 189 lb 12.8 oz Intake: IV Fluids 2659 LR 2659 IVPB 58 ABX - CEFAZOLIN 58 Oral 800 1255 360 Output: Urine 75 900 Caldwell 3250 Other: Estimated Void Medium Small # Bowel Movements 2 Estimated Stool Amount Small # Voids 1 2 ADLs: Meal Record Start: 06/06/19 18: 51 Freq: Status: Active Protocol: Created 06/06/19 18:51 [id number] (Rec: 06/06/19 18:51 [id number] SSU-C12) Document 06/07/19 08:54 [id number] (Rec: 06/07/19 08:55 [id number] SSU-M22) Document 06/08/19 08:33 [id number] (Rec: 06/08/19 08:33 [id number] SSU-M06) Intake and Output Start: 06/06/19 18: 51 Freq: DAILY@0600,1400,2200 Status: Active Protocol: Created 06/06/19 18:51 [id number] (Rec: 06/06/19 18:51 [id number] SSU-C12) Document 06/06/19 20:00 [id number] (Rec: 06/06/19 20:43 [id number] SSU-M07) Document 06/06/19 21:54 [id number] (Rec: 06/06/19 21:54 [id number] SSU-M07) Document 06/07/19 06:00 [id number] (Rec: 06/07/19 06:12 [id number] SSU-M13) Document 06/07/19 08:52 [id number] (Rec: 06/07/19 08:52 [id number] SSU-M22) Document 06/07/19 14:18 [id number] (Rec: 06/07/19 14:26 [id number] SSU-M16) Document 06/07/19 17:54 [id number] (Rec: 06/07/19 17:54 [id number] SSU-C19) Document 06/07/19 20:05 [id number] (Rec: 06/07/19 20:49 [id number] SSU-M17) Document 06/07/19 22:18 [id number] (Rec: 06/07/19 22:20 [id number] SSU-M17) Document 06/08/19 00:10 [id number] (Rec: 06/08/19 05:59 [id number] SSU-C19) Document 06/08/19 03:06 [id number] (Rec: 06/08/19 03:06 [id number] SSU-C03) Document 06/08/19 04:00 [id number] (Rec: 06/08/19 05:59 [id number] SSU-C19) Document 06/08/19 05:52 [id number] (Rec: 06/08/19 05:53 [id number] SSU-M16) Document 06/08/19 06:43 [id number] (Rec: 06/08/19 06:44 [id number] SSU-M22) Document 06/08/19 09:41 [id number] (Rec: 06/08/19 09:42 [id number] SSU-C11) Document 06/08/19 14:32 [id number] (Rec: 06/08/19 14:33 [id number] SSU-C11) - Physical Exam General Physical Exam Comment: warm and well perfused General: No Cyanosis, No Anemia, No Jaundice, No Clubbing Lungs and Chest: Yes: Chest Expansion Full, Chest Expansion Symetrica, Percussion Note Resonant, Vessicular Breath Sounds, Crackles - a few basal crackles. No: Wheezes, Respiratory Distress, Use of Accessory Muscles Heart Rate and Rhythm: Regular Additional Cardiovascular: Yes: Normal Heart Sounds, Heart Murmur - 3/6 aortic area, 2/6 apex - both systolic. No: Carotid Bruits, Pedal Edema Abdominal Exam: Yes: Soft, Bowel Sounds Present. No: Distention, Abdominal Tenderness Results - Results Lab Results: Laboratory Results - last 24 hr 06/08/19 04:41 Hgb 11.3 L Hct 34 L Plt Count 190 MPV 7.7 Assessment - Problem List Assessment: Patient Problems Hypoxemia (Acute) Status post total knee replacement, right (Acute) Abdominal aortic aneurysm without rupture (Chronic) Anxiety (Chronic) BPH (benign prostatic hyperplasia) (Chronic) Coronary arteriosclerosis (Chronic) Depression (Chronic) Essential hypertension (Chronic) Hypercholesteremia (Chronic) Plan: Hypoxemia (Acute) I think the most likely cause of this is the build up of opioids and respiratory depression. I will check a CXR in case of volume overload - however, he has no dyspnea/tachycardia. I will keep him in the hospital overnight Status post total knee replacement, right (Acute) He is having no pain at present Secondary diagnoses Abdominal aortic aneurysm without rupture (Chronic) Anxiety (Chronic) BPH (benign prostatic hyperplasia) (Chronic) Coronary arteriosclerosis (Chronic) Depression (Chronic) Essential hypertension (Chronic) Hypercholesteremia (Chronic) I explained the above to the patient and he agreed with the management
[2019-06-08] MEDS ORDERED: Bisacodyl SUPP* 10 MG SUPP PR PRN (15:50)
[2019-06-08] MEDS: Pantoprazole TAB * 40 MG TAB PO SCH (17:50)
[2019-06-08] MEDS: Mirtazapine TAB* 15 MG PO SCH (20:12)
[2019-06-08] MEDS: Tamsulosin CAP* 0.4 MG PO SCH (20:12)
[2019-06-08] MEDS: ARIPiprazole TAB* 2 MG PO SCH (20:12)
[2019-06-08] MEDS: Aspirin EC TAB* 81 MG TAB.EC PO SCH (20:12)
[2019-06-09 05:15] LABS: ABS Eosinophils 0.3 10^3/ul (0-0.6); ABS Lymphocytes 1.3 10^3/ul (1.0-4.8); ABS Monocytes 0.7 10^3/ul (0-0.8); ABS Neutrophils 4.3 10^3/ul (1.5-7.7); Eosinophil % 5.1 %; Hematocrit 32 % (42-52); Hemoglobin 10.8 g/dL (14.0-18.0); Lymphocyte % 19.9 %; Mean Corpuscular HGB Conc 34 g/dL (31-36); Mean Corpuscular Hemoglobin 30 pg (27-31); Mean Corpuscular Volume 89 fL (80-94); Mean Platelet Volume 8.3 fL (7.4-10.4); Platelet Count 183 10^3/uL (150-450); Red Blood Count 3.57 10^6 /uL (4.18-5.48); Red Cell Distribution Width 14 % (10-15); White Blood Count 6.7 10^3/uL (3.5-10.8)
[2019-06-09 05:36] LABS: BUN/Creatinine Ratio 19.8 (8-20); C Reactive Protein 133.91 mg/L (<8.01); Calcium 8.6 mg/dL (8.6-10.3); EGFR African American 104.6 (>60); EGFR Non-African American 86.5 (>60)
--- NOTE | 2019-06-09 08:46 | PN ---
Progress Note - Progress Note Date of Service: 06/09/19 SOAP: Subjective: [Pt reports feeling well. Has had low O2 sat - currently 93% RA. Denies SOB, dizziness, CP, calf pain. Using IS. R knee pain managed well with po meds.] Objective: [A and O x 3, NAD Seated in chair eating R knee dressing C/D/I. Calves soft, NT. Distal gross motor, NV function intact. Able to stand without dizziness CXR - Lungs clear, no evidence for acute changes Vital Signs: Temp Pulse Resp BP Pulse Ox 98.2 F 83 18 155/83 93 06/09/19 07:38 06/09/19 07:38 06/09/19 07:38 06/09/19 07:38 06/09/19 07:38 Laboratory Results - last 24 hr 06/09/19 06/09/19 04:40 04:40 WBC 6.7 RBC 3.57 L Hgb 10.8 L Hct 32 L MCV 89 MCH 30 MCHC 34 RDW 14 Plt Count 183 MPV 8.3 Neut % (Auto) 63.8 Lymph % (Auto) 19.9 [place] % (Auto) 10.8 Eos % (Auto) 5.1 Baso % (Auto) 0.4 Absolute Neuts (auto) 4.3 Absolute Lymphs (auto) 1.3 Absolute Monos (auto) 0.7 Absolute Eos (auto) 0.3 Absolute Basos (auto) 0.0 Absolute Nucleated RBC 0.0 Nucleated RBC % 0.0 Sodium 136 Potassium 4.0 Chloride 105 Carbon Dioxide 27 Anion Gap 4 BUN 17 Creatinine 0.86 Est GFR ( Amer) 104.6 Est GFR (Non-Af Amer) 86.5 BUN/Creatinine Ratio 19.8 Glucose 108 H Calcium 8.6 C-Reactive Protein 133.91 H ] Assessment: [s/p R TKA POD #3 O2 sat improving] Plan: [PT Pain management Monitor O2 sat Consider D/C home later today if O2 sat stabilizes]
[2019-06-09] MEDS: Acetaminophen TAB* 325 MG PO SCH (08:55)
[2019-06-09] MEDS: Docusate CAP* 100 MG PO SCH (08:56)
[2019-06-09] MEDS: Apixaban* 2.5 MG TAB PO SCH (08:56)
[2019-06-09] MEDS: Escitalopram * 20 MG TABLET PO SCH (08:56)
[2019-06-09] MEDS: Diltiazem CD CAP* 120 MG PO SCH (08:56)
[2019-06-09] MEDS: Vitamin THERAPEUTIC TAB PO SCH (08:56)
[2019-06-09] MEDS: Magnesium Hydroxide LIQ* 30 ML UDC PO SCH (08:57)
--- NOTE | 2019-06-09 10:18 | PN ---
Subjective - Subjective Reason for Note: Consultation Note History: Internal medicine He is more alert and awake this morning. His pain management is fine off opioids. Active Problems: Active Problems Hypoxemia (Acute) R09.02 Status post total knee replacement, right (Acute) Z96.651 Abdominal aortic aneurysm without rupture (Chronic) I71.4 Anxiety (Chronic) F41.9 BPH (benign prostatic hyperplasia) (Chronic) N40.0 Coronary arteriosclerosis (Chronic) I25.10 Depression (Chronic) F32.9 Essential hypertension (Chronic) I10 Hypercholesteremia (Chronic) E78.00 Current Medications: Current Medications Acetaminophen (Tylenol Tab*) 975 mg PO Q8HR [facility] Last Admin: 06/09/19 08:55 Dose: 975 mg Apixaban (Eliquis*) 2.5 mg PO BID [facility] Last Admin: 06/09/19 08:56 Dose: 2.5 mg Aripiprazole (Abilify Tab*) 2 mg PO 2100 [facility] Last Admin: 06/08/19 20:12 Dose: 2 mg Aspirin (Aspirin Ec Tab*) 81 mg PO 2100 [facility] Last Admin: 06/08/19 20:12 Dose: 81 mg Bisacodyl (Dulcolax Supp*) 10 mg ME DAILY PRN PRN Reason: CONSTIPATION Cyclobenzaprine HCl (Flexeril Tab*) 10 mg PO Q6H PRN PRN Reason: SPASMS Last Admin: 06/07/19 06:16 Dose: 10 mg Diltiazem HCl (Cardizem Cd Cap*) 120 mg PO QAM [facility] Last Admin: 06/09/19 08:56 Dose: 120 mg Diphenhydramine HCl (Benadryl Iv*) 25 mg IV Q6H PRN PRN Reason: PRURITIS Diphenhydramine HCl (Benadryl Po*) 25 mg PO Q6H PRN PRN Reason: PRURITIS Docusate Sodium (Colace Cap*) 100 mg PO BID [facility] Last Admin: 06/09/19 08:56 Dose: Not Given Escitalopram Oxalate (Lexapro *) 20 mg PO QAM [facility] Last Admin: 06/09/19 08:56 Dose: 20 mg Lactulose (Lactulose*) 30 ml PO BID PRN PRN Reason: CONSTIPATION Magnesium Hydroxide (Milk Of Magnesia Liq*) 30 ml PO BID [facility] Last Admin: 06/09/19 08:57 Dose: Not Given Magnesium Hydroxide (Milk Of Magnbossman Liq*) 30 ml PO Q6H PRN PRN Reason: CONSTIPATION Mirtazapine (Remeron Tab*) 15 mg PO BEDTIME [facility] Last Admin: 06/08/19 20:12 Dose: 15 mg Multivitamins (Theragran Tab*) 1 tab PO DAILY [facility] Last Admin: 06/09/19 08:56 Dose: 1 tab Nitroglycerin (Nitroglycerin Tab 0.4 Mg*) 0.4 mg SL Q5M PRN PRN Reason: CHEST PAIN Ondansetron HCl (Zofran Inj*) 4 mg IV Q6H PRN PRN Reason: NAUSEA Ondansetron HCl (Zofran Odt Tab*) 4 mg PO Q6H PRN PRN Reason: NAUSEA Ondansetron HCl (Zofran Tab*) 4 mg PO Q6H PRN PRN Reason: NAUSEA Pantoprazole Sodium (Protonix Tab*) 40 mg PO QPM [facility] Last Admin: 06/08/19 17:50 Dose: 40 mg Polyethylene Glycol/Electrolytes (Miralax*) 17 gm PO DAILY PRN PRN Reason: Constipation Tamsulosin HCl (Flomax Cap*) 0.4 mg PO BEDTIME [facility] Last Admin: 06/08/19 20:12 Dose: 0.4 mg - Review of Systems Constitutional Symptoms: No: Fever, Night Sweats Pulmonary: Negative: Cough, Sputum, Hemoptysis Cardiology: Negative: Chest Pain, Shortness of Breath, Palpitations, Swelling of Ankles Gastroenterology: Negative: Nausea, Vomiting, Anorexia, Constipation, Diarrhea Genital - Urinary: Positive: Polyuria Home Medications: Home Medications Medication Instructions Recorded Confirmed Type Docusate Sodium [Stool Softener] 50 mg PO BID 08/26/16 06/06/19 History Escitalopram Oxalate [Lexapro 20 20 mg PO QAM 08/26/16 06/06/19 History mg] Nitroglycerin TAB 0.4 MG* 0.4 mg SL Q5M PRN 08/26/16 06/06/19 History Omeprazole CAP (NF) [Prilosec CAP* 20 mg PO QPM 08/26/16 06/06/19 History 20 MG] ARIPiprazole TAB* [Abilify TAB*] 2 mg PO QPM 03/19/19 06/06/19 History Multivitamins/Minerals TAB* 1 tab PO QAM 03/19/19 06/06/19 History [Theragran/minerals TAB*] [place]-3 Fatty Acids [Super Twin 520 mg PO BID 03/19/19 06/06/19 History Epa-Dha] Diltiazem XR EXTEND Releas(NF) 120 mg PO QAM 05/27/19 06/06/19 History [Cartia XR (NF)] Mirtazapine TAB* [Remeron TAB*] 15 mg PO BEDTIME 05/27/19 06/06/19 History Tamsulosin CAP* [Flomax CAP*] 0.4 mg PO BEDTIME 05/27/19 06/06/19 History Allergies: Allergies Allergy/AdvReac Type Severity Reaction Status Date / Time No Known Allergies Allergy Verified 06/06/19 11:23 Objective - Vital Signs Vital Signs: Vital Signs 06/08/19 06/08/19 06/08/19 10:14 11:27 11:44 Temperature 98.1 F Pulse Rate 86 Respiratory 18 18 Rate Blood Pressure 137/71 (mmHg) O2 Sat by Pulse 92 91 Oximetry 06/08/19 06/08/19 06/08/19 14:00 14:01 15:45 Temperature 98.1 F Pulse Rate 86 Respiratory 18 16 Rate Blood Pressure 135/69 (mmHg) O2 Sat by Pulse 89 93 91 Oximetry 06/08/19 06/08/19 06/08/19 16:00 16:17 18:00 Temperature Pulse Rate Respiratory 16 16 Rate Blood Pressure (mmHg) O2 Sat by Pulse 92 92 92 Oximetry 06/08/19 06/08/19 06/08/19 19:34 19:58 22:18 Temperature 98.5 F Pulse Rate 84 Respiratory 16 16 16 Rate Blood Pressure 118/56 (mmHg) O2 Sat by Pulse 93 92 93 Oximetry 06/08/19 06/09/19 06/09/19 22:51 00:00 02:00 Temperature 97.9 F Pulse Rate 93 Respiratory 16 16 16 Rate Blood Pressure 148/80 (mmHg) O2 Sat by Pulse 94 93 94 Oximetry 06/09/19 06/09/19 06/09/19 03:43 04:59 05:57 Temperature 98.6 F Pulse Rate 84 Respiratory 16 16 16 Rate Blood Pressure 149/62 (mmHg) O2 Sat by Pulse 93 94 91 Oximetry 06/09/19 07:38 Temperature 98.2 F Pulse Rate 83 Respiratory 18 Rate Blood Pressure 155/83 (mmHg) O2 Sat by Pulse 93 Oximetry - Intake and Output Intake and Output: Intake & Output 06/06/19 06/07/19 06/08/19 06/09/19 11:59 11:59 11:59 11:59 Intake Total 3517 1255 1835 Output Total 3325 900 1100 Balance 192 355 735 Weight 189 lb 12.8 oz Intake: IV Fluids 2659 LR 2659 IVPB 58 ABX - CEFAZOLIN 58 Oral 800 1255 1835 Output: Urine 75 900 1100 [place] 3250 Other: Estimated Void Medium Large Date of Last Bowel 06/08/19 Movement # Bowel Movements 1 Estimated Stool Amount Small # Voids 1 1 ADLs: Meal Record Start: 06/06/19 18: 51 Freq: Status: Active Protocol: Created 06/06/19 18:51 [id number] (Rec: 06/06/19 18:51 [id number] SSU-C12) Document 06/07/19 08:54 [id number] (Rec: 06/07/19 08:55 [id number] SSU-M22) Document 06/08/19 08:33 [id number] (Rec: 06/08/19 08:33 [id number] SSU-M06) Document 06/08/19 18:26 [id number] (Rec: 06/08/19 18:28 [id number] SSU-M18) Document 06/09/19 08:58 [id number] (Rec: 06/09/19 08:59 [id number] SSU-M16) Intake and Output Start: 06/06/19 18: 51 Freq: DAILY@0600,1400,2200 Status: Active Protocol: Created 06/06/19 18:51 [id number] (Rec: 06/06/19 18:51 [id number] SSU-C12) Document 06/06/19 20:00 [id number] (Rec: 06/06/19 20:43 [id number] SSU-M07) Document 06/06/19 21:54 [id number] (Rec: 06/06/19 21:54 [id number] SSU-M07) Document 06/07/19 06:00 [id number] (Rec: 06/07/19 06:12 [id number] SSU-M13) Document 06/07/19 08:52 [id number] (Rec: 06/07/19 08:52 [id number] SSU-M22) Document 06/07/19 14:18 [id number] (Rec: 06/07/19 14:26 [id number] SSU-M16) Document 06/07/19 17:54 [id number] (Rec: 06/07/19 17:54 [id number] SSU-C19) Document 06/07/19 20:05 [id number] (Rec: 06/07/19 20:49 [id number] SSU-M17) Document 06/07/19 22:18 [id number] (Rec: 06/07/19 22:20 [id number] SSU-M17) Document 06/08/19 00:10 [id number] (Rec: 06/08/19 05:59 [id number] SSU-C19) Document 06/08/19 03:06 MDZ4213 (Rec: 06/08/19 03:06 [id number] SSU-C03) Document 06/08/19 04:00 [id number] (Rec: 06/08/19 05:59 FWZ2164 SSU-C19) Document 06/08/19 05:52 [id number] (Rec: 06/08/19 05:53 [id number] SSU-M16) Document 06/08/19 06:43 [id number] (Rec: 06/08/19 06:44 [id number] SSU-M22) Document 06/08/19 09:41 [id number] (Rec: 06/08/19 09:42 [id number] SSU-C11) Document 06/08/19 14:32 [id number] (Rec: 06/08/19 14:33 [id number] SSU-C11) Document 06/08/19 16:00 [id number] (Rec: 06/08/19 16:01 [id number] SSU-M18) Document 06/08/19 18:26 [id number] (Rec: 06/08/19 18:28 [id number] SSU-M18) Document 06/08/19 22:18 [id number] (Rec: 06/08/19 22:19 [id number] SSU-M15) Document 06/08/19 23:38 [id number] (Rec: 06/08/19 23:38 [id number] SSU-C12) Document 06/09/19 05:57 [id number] (Rec: 06/09/19 05:57 [id number] SSU-M15) Document 06/09/19 07:20 [id number] (Rec: 06/09/19 07:26 [id number] SSU-C12) Document 06/09/19 08:14 [id number] (Rec: 06/09/19 08:14 [id number] SSU-C12) Document 06/09/19 09:52 [id number] (Rec: 06/09/19 09:53 [id number] SSU-C12) - Physical Exam General Physical Exam Comment: Sitting in a chair, alert and oriented. He is in no distress. His O2 saturation is 93% on room air General: No Cyanosis, No Anemia, No Jaundice, No Clubbing Lungs and Chest: Yes: Chest Expansion Full, Chest Expansion Symetrica, Percussion Note Resonant, Vessicular Breath Sounds. No: Crackles, Wheezes Heart Rate and Rhythm: Regular [place] Beat: Non Displaced Additional Cardiovascular: Yes: Normal Heart Sounds, Heart Murmur. No: Pedal Edema Abdominal Exam: Yes: Soft, Bowel Sounds Present. No: Distention, Abdominal Tenderness Results - Results Lab Results: Laboratory Results - last 24 hr 06/09/19 06/09/19 04:40 04:40 WBC 6.7 RBC 3.57 L Hgb 10.8 L Hct 32 L MCV 89 MCH 30 MCHC 34 RDW 14 Plt Count 183 MPV 8.3 Neut % (Auto) 63.8 Lymph % (Auto) 19.9 [place] % (Auto) 10.8 Eos % (Auto) 5.1 Baso % (Auto) 0.4 Absolute Neuts (auto) 4.3 Absolute Lymphs (auto) 1.3 Absolute Monos (auto) 0.7 Absolute Eos (auto) 0.3 Absolute Basos (auto) 0.0 Absolute Nucleated RBC 0.0 Nucleated RBC % 0.0 Sodium 136 Potassium 4.0 Chloride 105 Carbon Dioxide 27 Anion Gap 4 BUN 17 Creatinine 0.86 Est GFR ( Amer) 104.6 Est GFR (Non-Af Amer) 86.5 BUN/Creatinine Ratio 19.8 Glucose 108 H Calcium 8.6 C-Reactive Protein 133.91 H Radiology Results: Patient Name: LEVI JAIME Medical Record#: [id number] Ordering Physician: Denver Catherine MD Acct.#: [id number] : 1940 Age: 78 Sex: M Location: SURGICAL STAY UNIT Exam Date: 06/08/191541 ADM Status: ADM IN Order Information: CHEST AP OR PORT Accession Number: [id number] CPT: 46090 INDICATION: Hypoxia. COMPARISON: Comparison is made with a prior chest x-ray study from May 27, 2019. TECHNIQUE: A portable view of the chest was obtained. FINDINGS: The patient appears to be status post coronary artery bypass surgery. The heart is within normal limits in size. The lungs are clear. No pleural effusion is seen. IMPRESSION: POSTSURGICAL CHANGES, NO EVIDENCE FOR ACUTE FINDING. <Electronically signed by Parag Hendrikcson MD in [facility]> 06/08/191720 Dictated By: Parag Hendrickson MD Dictated Date/Time: 06/08/191719 Transcribed Date/Time: 06/08/191719 Copy to: Assessment - Problem List Assessment: Patient Problems Hypoxemia (Acute) Status post total knee replacement, right (Acute) Abdominal aortic aneurysm without rupture (Chronic) Anxiety (Chronic) BPH (benign prostatic hyperplasia) (Chronic) Coronary arteriosclerosis (Chronic) Depression (Chronic) Essential hypertension (Chronic) Hypercholesteremia (Chronic) Plan: Hypoxemia (Acute) This was driven by the accumulation of opioids. Clearly, he has metabolized and excreted these drugs and his O2 saturation is now normal on room air. Secondary diagnoses. Status post total knee replacement, right (Acute) Abdominal aortic aneurysm without rupture (Chronic) Anxiety (Chronic) BPH (benign prostatic hyperplasia) (Chronic) Coronary arteriosclerosis (Chronic) Depression (Chronic) Essential hypertension (Chronic) Hypercholesteremia (Chronic) He is now ready from the medical point of view for discharge home. I discussed the above with the patient. I also called his Monika and told her.
[2019-06-09 11:30] VITALS: BP 150/60
--- NOTE | 2019-06-10 14:31 | DS ---
DISCHARGE SUMMARY: DATE OF ADMISSION: 06/06/19 DATE OF DISCHARGE: 06/09/19 ADMITTING PHYSICIAN: Dr. Ward.* (DICTATED BY NICOLASA NARANJO) ADMITTING DIAGNOSES: 1. Right knee osteoarthritis. 2. Coronary artery disease. 3. Hypertension. 4. Hypercholesterolemia. 5. Gastroesophageal reflux disease . 6. Anxiety. 7. Depression. 8. History of prostate cancer. 9. History of abdominal aortic aneurysm. DISCHARGE DIAGNOSES: 1. Status post right total knee arthroplasty. 2. Coronary artery disease. 3. Hypertension. 4. Hypercholesterolemia. 5. Gastroesophageal reflux disease. 6. Anxiety. 7. Depression. 8. History of prostate cancer. 9. History of abdominal aortic aneurysm. 10. Status post hypoxemia secondary to opioids. PROCEDURE: Right total knee arthroplasty. CONSULTANTS: Physical Therapy, Occupational Therapy, Medicine. BRIEF HISTORY: Mr. Lepe is a 78-year-old male with severe degenerative osteoarthritis of his right knee. He failed conservative treatment measures and elected to undergo a right total knee arthroplasty on 06/06/[address] Ward. HOSPITAL COURSE: Mr. Lepe was admitted to [facility] on . He underwent an uncomplicated right total knee arthroplasty. Postoperatively, he recovered on the short stay surgical unit. His [place] catheter was removed on postoperative day 1 and he was able to urinate on his own. He advanced to a regular diet without difficulty. He was able to bear weight as tolerated on the right lower extremity and advanced appropriately with Physical Therapy and Occupational Therapy. His DVT prophylaxis was Eliquis. He was set to be discharged on postoperative day #2 in the morning; however, later that day his O2 desaturated into the low 80s. He became more drowsy and required O2 by nasal cannula. He was followed by Dr. Catherine. A chest x -ray was ordered, which showed the lungs to be clear and no pleural effusion. It was believed that his desaturation was secondary to narcotic pain medication. He was able to be transitioned to Tylenol for pain management. His O2 sat returned to normal on room air. By postoperative day #3, the patient was orthopedically and medically stable to be discharged home with services. PHYSICAL EXAM: General: On examination, the patient is noted to be calm and cooperative in no acute distress. He is alert and oriented x3. Vital Signs: On day of discharge, temperature 98.6, pulse rate 84, respiratory rate 16, O2 sat 94% on room air, blood pressure 149/62. Extremities: Examination of the right lower extremity demonstrates a dressing overlying the right knee, which is clean, dry and intact. Calf is soft and nontender. Distal neurovascular function and gross strength intact. LABORATORY DATA ON DAY OF DISCHARGE: Hemoglobin 11.3, hematocrit 34. Postoperative radiographs of the right knee demonstrate a right total knee arthroplasty with satisfactory prosthesis placement and no acute abnormalities. Chest x-ray on postop day #2 showed the lungs to be clear, no pleural effusion. DISCHARGE MEDICATIONS: 1. Abilify 2 mg daily. 2. Rosuvastatin calcium 40 mg daily. 3. Nitroglycerin 0.4 mg sublingual as needed. 4. Cartia 120 mg daily. 5. Prilosec 20 mg a day. 6. Fish oil. 7. Escitalopram 20 mg daily. 8. Tamsulosin 0.4 mg. 9. Stool softener as needed. 10. Percocet 5/325 mg 1 to 2 tabs q.4 to 6 hours p.r.n. pain. 11. Eliquis 2.5 mg b.i.d. for 30 days. CONDITION ON DISCHARGE: Stable. DISCHARGE INSTRUCTIONS: Mr. Lepe is a 78-year-old male on postoperative day #3 status post right total knee arthroplasty, which was uncomplicated. He did suffer O2 desaturation over the course of his second postoperative day which stabilized after discontinuation of narcotics. Chest x-ray showed his lungs to be clear. The patient will remain weightbearing as tolerated on the right lower extremity and have physical therapy twice a day. He will use Percocet for pain control and Eliquis 2.5 mg twice a day for DVT prophylaxis. He will follow up in the office with Dr. Ward approximately 14 days postop for incision check and suture removal. He was instructed to call Dr. Ward or go immediately to the ER should he develop any new fevers, chills, incision pain, redness or drainage. He was instructed to go immediately to the ER should he develop any chest pain or shortness of breath. NICOLASA NARANJO [id number]/[facility] #: [id number] [facility]
== END 2019-06-09 13:20 | disposition home health service (06) | DRG 470 ==
LOC: AA 10:50 → SSU 18:40
PROVIDERS: ADMIT Orthopaedic Surgery Adult Reconstructive Orthopaedic Surgery; ATTEND Orthopaedic Surgery Adult Reconstructive Orthopaedic Surgery
PROC: 0SRC0J9 Replacement of Right Knee Joint with Synthetic Substitute, Cemented, Open Approach (ICD-10-PCS; principal; 2019-06-06 13:45)
DX: M17.11 Unilateral primary osteoarthritis, right knee (principal); I25.10 Atherosclerotic heart disease of native coronary artery without angina pectoris; I10 Essential (primary) hypertension; E78.00 Pure hypercholesterolemia, unspecified; K21.9 Gastro-esophageal reflux disease without esophagitis; F41.9 Anxiety disorder, unspecified; F32.9 Major depressive disorder, single episode, unspecified; E78.5 Hyperlipidemia, unspecified; N40.0 Benign prostatic hyperplasia without lower urinary tract symptoms; R09.02 Hypoxemia; T40.2X5A Adverse effect of other opioids, initial encounter; Y92.230 Patient room in hospital as the place of occurrence of the external cause; Z95.1 Presence of aortocoronary bypass graft; Z85.46 Personal history of malignant neoplasm of prostate; Z95.5 Presence of coronary angioplasty implant and graft; Z79.82 Long term (current) use of aspirin; Z79.899 Other long term (current) drug therapy; Z82.49 Family history of ischemic heart disease and other diseases of the circulatory system; Z85.818 Personal history of malignant neoplasm of other sites of lip, oral cavity, and pharynx; Z80.3 Family history of malignant neoplasm of breast; Z80.8 Family history of malignant neoplasm of other organs or systems; M25.761 Osteophyte, right knee
CPT/HCPCS: 36415; 71045; 76000; 80048; 85014; 85018; 85025; 85049; 85610; 86140; 86850; 86900; 86901; 88305; 88311; A9270-GY; C1776; G8978-GP-CJ; G8979-GP-CI; J0690; J2250; J2704; J2795; J3490

== ENCOUNTER 2022-06-14 12:09 | Inpatient (IN) ==
[2022-06-14] MEDS ORDERED: Influenza vaccine *QUAD* *2022-23* 0.5 ML SYRINGE IM ONE (19:02)
[2022-06-14] MEDS: Enoxaparin 40 MG/0.4 ML SYR SUBCUT SCH (20:07)
[2022-06-14] MEDS: Aspirin EC 81 mg TAB.EC (enteric coated) PO SCH (20:08)
[2022-06-15 06:03] LABS: Hematocrit 41 % (42-52); Hemoglobin 13.6 g/dL (14.0-18.0); Mean Corpuscular HGB Conc 33 g/dL (31-36); Mean Corpuscular Hemoglobin 30 pg (27-31); Mean Corpuscular Volume 90 fL (80-94); Mean Platelet Volume 8.6 fL (7.4-10.4); Platelet Count 228 10^3/uL (150-450); Red Blood Count 4.53 10^6 /uL (4.18-5.48); Red Cell Distribution Width 13 % (10-15); White Blood Count 5.1 10^3/uL (3.5-10.8)
[2022-06-15 06:16] LABS: ABS Eosinophils 0.2 10^3/ul (0-0.6); ABS Lymphocytes 1.6 10^3/ul (1.0-4.8); ABS Monocytes 0.4 10^3/ul (0-0.8); ABS Neutrophils 2.8 10^3/ul (1.5-7.7); Eosinophil % 3.7 %
[2022-06-15 06:45] LABS: Calcium 9.2 mg/dL (8.6-10.3); Potassium 4.1 mmol/L (3.5-5.0)
[2022-06-15 06:51] LABS: HDL Cholesterol 22.1 mg/dL; eGFR CKD-EPI 75.7 (>60)
[2022-06-15] MEDS ORDERED: Influenza vaccine *QUAD* *2022-23* 0.5 ML SYRINGE IM ONE (09:00)
[2022-06-15 09:02] LABS: TSH Ultra Thyroid Stim Horm 2.26 mcIU/mL (0.34-5.60)
[2022-06-15] MEDS: Multivitamins/Minerals TAB PO SCH (09:14)
[2022-06-15] MEDS: Enoxaparin 40 MG/0.4 ML SYR SUBCUT SCH (20:40)
[2022-06-15] MEDS: Aspirin EC 81 mg TAB.EC (enteric coated) PO SCH (20:40)
[2022-06-16] MEDS: Multivitamins/Minerals TAB PO SCH (08:11)
[2022-06-16] MEDS ORDERED: Iohexol 350 (CONTRAST) 500 ML MDV IV ONE ×2 (12:54→13:18)
[2022-06-16] MEDS: Aspirin EC 81 mg TAB.EC (enteric coated) PO SCH (20:19)
[2022-06-16] MEDS: Enoxaparin 40 MG/0.4 ML SYR SUBCUT SCH (20:19)
[2022-06-17] MEDS: Multivitamins/Minerals TAB PO SCH (09:49)
[2022-06-17] MEDS: Enoxaparin 40 MG/0.4 ML SYR SUBCUT SCH (20:38)
[2022-06-17] MEDS: Aspirin EC 81 mg TAB.EC (enteric coated) PO SCH (20:39)
[2022-06-18] MEDS: Multivitamins/Minerals TAB PO SCH (09:31)
[2022-06-18 12:26] VITALS: BP 127/75
== END 2022-06-18 12:45 | disposition home health service (06) | DRG 64 ==
LOC: ED 12:09 → EDHOLD 12:09 → SUATTDRO 18:30 → EDHOLD 21:21 → MEDTELE 21:26
PROVIDERS: ADMIT Internal Medicine; ATTEND Internal Medicine

== ENCOUNTER 2023-08-19 13:56 | Inpatient (IN) ==
[2023-08-19 14:28] LABS: ABS Eosinophils 0.1 10^3/uL (0.0-0.5); ABS Lymphocytes 1.2 10^3/uL (1.0-4.8); ABS Monocytes 0.3 10^3/uL (0.0-1.1); ABS Neutrophils 2.9 10^3/uL (1.5-7.6); ABS Nucleated RBC 0.01 10^3/ul; Eosinophil % 1.9 %; Hematocrit 39.9 % (38-53); Hemoglobin 13.7 g/dL (13.2-16.3); Lymphocyte % 27.4 %; Mean Corpuscular Hemoglobin 30.8 pg (27-33); Mean Corpuscular Hgb Conc 34.3 g/dL (31-36); Mean Corpuscular Volume 89.8 fL (80-97); Mean Platelet Volume 8.3 fL (7.5-11.2); Nucleated Red Blood Cells % 0.2 %/100WBC (0.0-0.8); Platelet Count 228 10^3/uL (150-450); Red Blood Count 4.44 10^6/uL (4.06-5.63); Red Cell Distribution Width 13.6 % (12-17); White Blood Count 4.5 10^3/uL (3.6-10.2)
[2023-08-19 14:46] LABS: Activated Partial Thrombo Time 35.3 seconds (26.0-38.0); INR 1.13 (0.83-1.13)
[2023-08-19 15:00] LABS: Albumin 4.5 g/dL (3.2-5.2); Albumin/Globulin Ratio 1.4 (1-3); Calcium 10.1 mg/dL (8.6-10.3); Creatinine, Serum 0.99 mg/dL (0.67-1.17); Globulin 3.3 g/dL (2-4); HDL Cholesterol 32.8 mg/dL; Indirect Bilirubin 0.9 mg/dL (0.3-1.0); Potassium 3.9 mmol/L (3.5-5.0); Total Bilirubin 0.9 mg/dL (0.2-1.0); Total Protein 7.8 g/dL (6.4-8.9); eGFR CKD-EPI 76.5 (>60)
[2023-08-19] MEDS ORDERED: Iodixanol 320 (CONTRAST) 100 ML SDV IV ONE (15:34)
[2023-08-19 15:42] LABS: Urine Appearance Clear; Urine Bilirubin Negative (Negative); Urine Blood Negative (Negative); Urine Color Yellow; Urine Glucose Negative (Negative); Urine Ketones Negative (Negative); Urine Nitrite Negative (Negative); Urine Protein Negative (Negative); Urine Urobilinogen Negative (Negative)
[2023-08-20 07:19] LABS: Hematocrit 35.9 % (38-53); Hemoglobin 12.2 g/dL (13.2-16.3); Mean Corpuscular Hemoglobin 30.5 pg (27-33); Mean Corpuscular Hgb Conc 34.1 g/dL (31-36); Mean Corpuscular Volume 89.4 fL (80-97); Mean Platelet Volume 8.3 fL (7.5-11.2); Platelet Count 188 10^3/uL (150-450); Red Blood Count 4.02 10^6/uL (4.06-5.63); Red Cell Distribution Width 13.5 % (12-17); White Blood Count 4.8 10^3/uL (3.6-10.2)
[2023-08-20 07:42] LABS: Calcium 8.8 mg/dL (8.6-10.3); Creatinine, Serum 0.9 mg/dL (0.67-1.17); Potassium 3.8 mmol/L (3.5-5.0); eGFR CKD-EPI 85.8 (>60)
[2023-08-20 08:16] LABS: TSH Ultra Thyroid Stim Horm 4.08 mcIU/mL (0.34-5.60)
[2023-08-20] MEDS: Aspirin EC 81 mg TAB.EC (enteric coated) PO SCH (08:52)
[2023-08-21] MEDS: Aspirin EC 81 mg TAB.EC (enteric coated) PO SCH (09:35)
[2023-08-21] MEDS ORDERED: Sulfur Hexaflouride MICROSPHR 25 MG VIAL ONE (13:16)
[2023-08-21 15:04] VITALS: BP 145/75
== END 2023-08-21 18:53 | disposition home or self-care (01) | DRG 66 ==
LOC: ED 13:56 → SUATTDRO 16:52 → EDHOLD 16:52 → MEDTELE 19:45
PROVIDERS: ADMIT Internal Medicine; ATTEND Internal Medicine